=== PATIENT | male | born 1930 | race American Indian/Alaskan Native ===

== ENCOUNTER 2017-06-11 01:57 | Inpatient (IN) | payer MEDICARE ==
[2017-06-11 03:07] LABS: BASO # 0.1 K/uL (0.0-0.2); BASO % 0.6 % (0.0-2.0); EOS % 0.2 % (0.0-4.0); LYMPH % 9.5 % (20.0-40.0); MEAN CELL VOLUME 90.6 fl (80.0-94.0); MEAN CORPUSCULAR HEMOGLOBIN 28.8 pg (27.0-31.0); MEAN CORPUSCULAR HGB CONC 31.8 g/dL (33.0-37.0); MEAN PLATELET VOLUME 8.7 fl (7.2-11.7); MONO # 0.7 K/uL (0.0-0.8); MONO % 6.8 % (0.0-10.0); NEUT # 8.7 K/uL (1.8-7.0); NEUT % 82.9 % (50.0-75.0); PLATELET COUNT 236 K/uL (130-400); RED CELL DISTRIBUTION WIDTH 15.3 % (11.5-14.5); WHITE BLOOD COUNT 10.5 K/uL (4.8-10.8)
[2017-06-11 03:21] LABS: RBC URINE 6 /hpf (0-3); URINE BACTERIA RARE (<OCC); URINE BILIRUBIN NEGATIVE (NEGATIVE); URINE BLOOD SMALL (NEGATIVE); URINE COLOR YELLOW (YELLOW); URINE GLUCOSE (UA) NEG (Normal); URINE KETONE TRACE mg/dL (NEGATIVE); URINE LEUKOCYTE ESTERASE NEG Leu/uL (Negative); URINE PROTEIN 100 mg/dL (NEGATIVE); URINE UROBILINOGEN 0.2-1.0 mg/dL (0.2-1.0); WBC URINE 1 /hpf (0-5)
[2017-06-11 03:58] LABS: BLOOD UREA NITROGEN 16 mg/dl (9-20); GFR AFRICAN-AMERICAN 58; GLUCOSE,RANDOM 196 mg/dL (75-110); SODIUM 139 mmol/l (132-148)
[2017-06-11 03:59] LABS: CALCIUM 9.7 mg/dL (8.4-10.2); CARBON DIOXIDE 21 mmol/L (22-30); CHLORIDE 104 mmol/L (98-107); TOTAL PROTEIN 8.5 G/DL (6.3-8.2)
[2017-06-11 04:00] LABS: ALB/GLOB RATIO 0.9 (1.0-2.1); AST/SGOT 57 U/L (17-59); BILIRUBIN,TOTAL 1.6 mg/dl (0.2-1.3)
[2017-06-11 04:01] LABS: ALKALINE PHOSPHATASE 88 U/L (38-126); ALT/SGPT < 6 U/L (21-72); LIPASE 174 U/L (23-300)
[2017-06-11] MEDS ORDERED: Iohexol 300 100 ML IJ ONE (04:08)
[2017-06-11] MEDS ORDERED: Sodium Chloride 0.9% 50 ML IV ONE (04:08)
[2017-06-11 04:17] LABS: NEUTROPHIL 84 % (42-75); TOTAL CELLS COUNTED 100
[2017-06-11] MEDS ORDERED: Piperacillin/Tazobact 3.375 GM in Sodium Chloride 0.9% 100 ML IVPB STA (05:04)
[2017-06-11] MEDS ORDERED: Sodium Chloride 0.9% 1,000 ML IV STA (05:04)
[2017-06-11] MEDS ORDERED: Piperacillin/Tazobact 3.375 gm Inj IVPB ONE (05:16)
[2017-06-11] MEDS: Sodium Chloride 0.9% 1,000 ML IV SCH ×2 (06:20→22:35)
[2017-06-11 09:50] LABS: PARTIAL THROMBOPLASTIN TIME 29.7 Seconds (25.6-37.1)
[2017-06-11 09:52] LABS: CALCIUM 9.4 mg/dL (8.4-10.2); POTASSIUM 4.7 MMOL/L (3.6-5.0)
[2017-06-11] MEDS: Piperacillin/Tazobact 3.375 GM in Sodium Chloride 0.9% 100 ML IVPB SCH ×3 (09:52→21:22)
[2017-06-11] MEDS ORDERED: Rocuronium 10 mg/ml (5 ml) ONE (13:23)
[2017-06-11] MEDS ORDERED: Propofol 10 mg/ml Inj (20 ML) ONE (13:23)
[2017-06-11] MEDS ORDERED: Succinylcholine 200 mg/10 ml Inj IV ONE (13:24)
[2017-06-11] MEDS ORDERED: Etomidate 20 mg/10ml Inj IV ONE (13:27)
[2017-06-11] MEDS ORDERED: ePHEDrine 50 mg/ml Inj ONE (13:30)
[2017-06-11] MEDS ORDERED: Phenylephrine 10 mg/ml Inj ONE (13:30)
[2017-06-11] MEDS ORDERED: Lidocaine 1% Inj (20ml) ONE (13:45)
[2017-06-11] MEDS ORDERED: Bupivacaine 0.5% Inj(30mL) ONE (13:45)
[2017-06-11] MEDS ORDERED: Sodium Chloride 0.9% 500 ML IV ONE ×2 (13:52→15:05)
[2017-06-11] MEDS ORDERED: Lactated Ringer's 500 ML IV ONE ×2 (13:52→15:05)
[2017-06-11] MEDS ORDERED: Neostigmine Methylsulfate 3mg/3ml Syringe IV ONE ×3 (14:44→14:54)
[2017-06-11] MEDS ORDERED: Oxycodone/Acetaminophen 5/325 mg Tab PO PRN (15:26)
[2017-06-12] MEDS: Sodium Chloride 0.9% 1,000 ML IV SCH (02:52)
[2017-06-12] MEDS: Piperacillin/Tazobact 3.375 GM in Sodium Chloride 0.9% 100 ML IVPB SCH ×4 (04:12→21:24)
[2017-06-12 06:44] LABS: ALB/GLOB RATIO 0.9 (1.0-2.1); BILIRUBIN,TOTAL 0.9 mg/dl (0.2-1.3); CALCIUM 9.2 mg/dL (8.4-10.2); POTASSIUM 4.6 MMOL/L (3.6-5.0); TOTAL PROTEIN 7.1 G/DL (6.3-8.2)
[2017-06-12 07:08] LABS: BASO % 0.2 % (0.0-2.0); EOS % 0.1 % (0.0-4.0); HEMATOCRIT 32.7 % (35.0-51.0); LYMPH # 1.2 K/uL (1.0-4.3); LYMPH % 11.1 % (20.0-40.0); MEAN CELL VOLUME 91.4 fl (80.0-94.0); MEAN CORPUSCULAR HEMOGLOBIN 28.6 pg (27.0-31.0); MEAN CORPUSCULAR HGB CONC 31.3 g/dL (33.0-37.0); MEAN PLATELET VOLUME 8.8 fl (7.2-11.7); MONO # 0.8 K/uL (0.0-0.8); MONO % 6.9 % (0.0-10.0); NEUT # 8.9 K/uL (1.8-7.0); NEUT % 81.7 % (50.0-75.0); WHITE BLOOD COUNT 10.9 K/uL (4.8-10.8)
[2017-06-12] MEDS ORDERED: DOXAZOSIN MESYLATE 2 MG PO SCH (09:00)
[2017-06-13] MEDS: Piperacillin/Tazobact 3.375 GM in Sodium Chloride 0.9% 100 ML IVPB SCH ×4 (03:05→21:30)
[2017-06-13] MEDS: Enoxaparin 40 mg Syringe SC SCH (11:40)
[2017-06-14] MEDS: Piperacillin/Tazobact 3.375 GM in Sodium Chloride 0.9% 100 ML IVPB SCH ×4 (04:50→21:13)
[2017-06-14 07:01] LABS: CALCIUM 9.5 mg/dL (8.4-10.2)
[2017-06-14 09:17] LABS: HEMATOCRIT 30.7 % (35.0-51.0); MEAN CORPUSCULAR HEMOGLOBIN 28.9 pg (27.0-31.0); MEAN CORPUSCULAR HGB CONC 32.1 g/dL (33.0-37.0); RED CELL DISTRIBUTION WIDTH 14.8 % (11.5-14.5); WHITE BLOOD COUNT 8.8 K/uL (4.8-10.8)
[2017-06-14] MEDS: Enoxaparin 40 mg Syringe SC SCH (09:17)
[2017-06-14] MEDS ORDERED: Lidocaine 1% Inj (20ml) ONE (14:06)
[2017-06-14 14:31] LABS: POTASSIUM 4.6 MMOL/L (3.6-5.0)
[2017-06-14 14:58] LABS: BODY FLUID TYPE PLEURAL/THORACENTESI
[2017-06-14 16:10] LABS: BF GROSS APPEARANCE CLOUDY (CLEAR); BODY FLUID TOTAL COUNT 100 (0-0)
[2017-06-15] MEDS: Piperacillin/Tazobact 3.375 GM in Sodium Chloride 0.9% 100 ML IVPB SCH ×2 (04:02→09:32)
[2017-06-15 07:29] VITALS: RESP 19; TEMP 97.9; O2SAT 97
[2017-06-15] MEDS ORDERED: Pantoprazole 40 mg EC Tab PO SCH (09:00)
[2017-06-15] MEDS: Enoxaparin 40 mg Syringe SC SCH ×2 (09:31→10:00)
[2017-06-15 13:30] VITALS: PULSE 80
[2017-06-15 16:10] VITALS: BP 160/82
== END 2017-06-15 15:52 | disposition home or self-care (01) | DRG 342 ==
LOC: H.ER 01:57 → H.ERHOLD 05:04 → H.MEDSURG1 06:20
PROVIDERS: ADMIT Family Medicine; ATTEND Family Medicine
PROC: 0DTJ4ZZ Resection of Appendix, Percutaneous Endoscopic Approach (ICD-10-PCS; principal; 2017-06-11 15:30)
PROC: 0W993ZZ Drainage of Right Pleural Cavity, Percutaneous Approach (ICD-10-PCS; 2017-06-14)
DX: K35.80 Unspecified acute appendicitis (principal); J90 Pleural effusion, not elsewhere classified; E11.9 Type 2 diabetes mellitus without complications; I10 Essential (primary) hypertension; Z95.0 Presence of cardiac pacemaker; Z87.891 Personal history of nicotine dependence; Z77.090 Contact with and (suspected) exposure to asbestos; T41.205A Adverse effect of unspecified general anesthetics, initial encounter; R33.0 Drug induced retention of urine

== ENCOUNTER 2017-06-19 13:39 | Inpatient (IN) | payer MEDICARE, OTHER ==
--- NOTE | 2017-06-19 13:58 | ED PDOC ---
HPI: SOB/CHF/COPD Time Seen by Provider: 06/19/17 13:52 Chief Complaint (Nursing): Shortness Of Breath Additional Complaint(s): Patient is an 87 y/o M who was admitted for appendicitis on 06/11 and found to have loculated R pleural effusion. Patient underwent IR drainage on 06/14. Patient was recommended by Dr. Low, ct surgery for OR drainage and decortication but patient did not want to stay in hospital. He saw Dr. Patel today and after complaining of persistent SOB, was referred back to ED. Past Medical History Vital Signs: Last Vital Signs Temp 97.9 F 06/19/17 13:46 Pulse 98 H 06/19/17 13:46 Resp 17 06/19/17 13:46 BP 165/75 H 06/19/17 13:46 Pulse Ox 98 06/19/17 14:18 - Medical History PMH: Cardia Arrhythmia, Diabetes (NIDDM2), HTN, Pneumonia Denies: Chronic Kidney Disease - Surgical History Surgical History: Pacemaker - Family History Family History: States: Unknown Family Hx - Home Medications Home Medications: Ambulatory Orders Medication Instructions Recorded Doxazosin Mesylate [Cardura Xl] 2 mg PO DAILY 06/11/17 MetFORMIN [glucoPHAGE] 1,000 mg PO BID 06/11/17 - Allergies Allergies/Adverse Reactions: Allergies Allergy/AdvReac Type Severity Reaction Status Date / Time No Known Allergies Allergy Verified 06/11/17 02:08 Review of Systems Constitutional: Negative for: Fever, Chills Cardiovascular: Negative for: Chest Pain Respiratory: Positive for: Shortness of Breath, SOB with Exertion. Negative for : Cough, Wheezing Gastrointestinal: Negative for: Nausea, Vomiting, Abdominal Pain, Diarrhea, Constipation Genitourinary Male: Negative for: Dysuria Musculoskeletal: Negative for: Neck Pain, Shoulder Pain Skin: Negative for: Rash Neurological: Negative for: Weakness, Numbness Physical Exam - Reviewed Nursing Documentation Reviewed: Yes Vital Signs Reviewed: Yes - Physical Exam Appears: Positive for: Non-toxic Head Exam: Positive for: ATRAUMATIC, NORMAL INSPECTION, NORMOCEPHALIC Eye Exam: Positive for: EOMI, Normal appearance, PERRL Cardiovascular/Chest: Positive for: Regular Rate, Rhythm Respiratory: Positive for: Decreased Breath Sounds (at bases) Gastrointestinal/Abdominal: Positive for: Soft, Other (well healed surgical scars). Negative for: Tenderness Back: Positive for: Normal Inspection Extremity: Positive for: Normal ROM Neurologic/Psych: Positive for: Alert, Oriented - ECG O2 Sat by Pulse Oximetry: 98 Medical Decision Making Medical Decision Making: Will get pre-op labs and consult CT surgery and admit EKG shows paced rhythm at 84bpm. Spoke to Dr. Mcclure who requested admission under Dr. Kuhn. Dr. Patel aware of consult. CT Sx consult placed. [facility] med resident aware Disposition - Clinical Impression Clinical Impression: Shortness of breath, Pleural effusion - Disposition Disposition Time: 14:27 Condition: FAIR Forms: [employer] (Indonesian) - Pt Status Changed To: Hospital Disposition Of: Inpatient - Admit Certification Admit to Inpatient:: After my assessment, the patient will require hospitalization for at least two midnights. This is because of the severity of symptoms shown, intensity of services needed, and/or the medical risk in this patient being treated as an outpatient.
[2017-06-19 14:39] LABS: BASO % 0.4 % (0.0-2.0); EOS # 0.1 K/uL (0.0-0.7); EOS % 0.5 % (0.0-4.0); HEMATOCRIT 30.8 % (35.0-51.0); LYMPH # 1.2 K/uL (1.0-4.3); LYMPH % 10.9 % (20.0-40.0); MEAN CELL VOLUME 89.1 fl (80.0-94.0); MEAN CORPUSCULAR HEMOGLOBIN 28.8 pg (27.0-31.0); MEAN CORPUSCULAR HGB CONC 32.3 g/dL (33.0-37.0); MEAN PLATELET VOLUME 8.2 fl (7.2-11.7); MONO # 0.6 K/uL (0.0-0.8); MONO % 5.3 % (0.0-10.0); NEUT # 8.9 K/uL (1.8-7.0); NEUT % 82.9 % (50.0-75.0); NRBC % 0.1 % (0.0-0.0); RED CELL DISTRIBUTION WIDTH 15.1 % (11.5-14.5); WHITE BLOOD COUNT 10.7 K/uL (4.8-10.8)
[2017-06-19 14:59] LABS: ALB/GLOB RATIO 0.9 (1.0-2.1); ALKALINE PHOSPHATASE 47 U/L (38-126); ALT/SGPT 25 U/L (21-72); AST/SGOT 34 U/L (17-59); BILIRUBIN,TOTAL 0.4 mg/dl (0.2-1.3); BLOOD UREA NITROGEN 15 mg/dl (9-20); CALCIUM 9.9 mg/dL (8.4-10.2); CARBON DIOXIDE 24 mmol/L (22-30); CHLORIDE 102 mmol/L (98-107); GFR AFRICAN-AMERICAN > 60; GLUCOSE,RANDOM 180 mg/dL (75-110); POTASSIUM 4.7 MMOL/L (3.6-5.0); SODIUM 139 mmol/l (132-148); TOTAL PROTEIN 7.7 G/DL (6.3-8.2)
[2017-06-19 15:24] LABS: PARTIAL THROMBOPLASTIN TIME 21.8 Seconds (25.6-37.1)
--- NOTE | 2017-06-19 15:24 | CP.PCM.HP ---
<Noah Brown - Last Filed: 06/19/17 16:12> History of Present Illness - History of Present Illness History of Present Illness: 87 y/o male with a PMHx remarkable for HTN, NIDDM2, pacemaker, s/p appendectomy first week of Jun 2017 presented to [facility] ED for evaluation of SOB. Pt was being seen by Dr. Patel today at his office as part of his prior hospitalization follow up (after multiloculated effusion was found on CT) and was telling that his SOB upon discharge has been worsening. Reports it is strictly exertional and he is asymptomatic at rest. He denies any associated chest pain/palpitations , left arm/jaw pain.He reports he is able to sleep flat on his back at night w/ o issue. Denies calf pain and pedal edema. Denies any recent URI symptoms, fever /chills, cough, night sweats. Reports decreased appetite. Pt reports neck stiffness which was sudden onset, w/o inciting event that feels "like i pulled my neck." No other complaints. ROS: 12 points reviewed, as remaining systems negative as per HPI. PMD: Dr. 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 whom is bedside is POA. FamilyHx: denies ED COURSE: Vitals on presentation: T: 97.9, BP 165/75, HR 98, RR 17, POX 98% RA PE: LUNG: decreased breath sounds at bases b/l LABS CBC:10.7>10.0/30.8<393 CMP: wnl COAGS: 12.6/1.1/21.[address] CHEST W CONTRAST CONSULTS Dr. Patel (Pulmonology) Dr. Rios (thoracic surgery) Present on Admission - Present on Admission Any Indicators Present on Admission: No Past Patient History - Past Social History Smoking Status: Former Smoker - CARDIAC Hx Cardiac Disorders: Yes Hx Cardia Arrhythmia: Yes Hx Hypertension: Yes Hx Pacemaker: Yes - PULMONARY Hx Respiratory Disorders: Yes Hx Pneumonia: Yes - NEUROLOGICAL Hx Neurological Disorder: No - HEENT Hx HEENT Problems: No - RENAL Hx Chronic Kidney Disease: No - ENDOCRINE/METABOLIC Hx Endocrine Disorders: Yes Hx Diabetes Mellitus Type 2: Yes - HEMATOLOGICAL/ONCOLOGICAL Hx Blood Disorders: No - INTEGUMENTARY Hx Dermatological Problems: No - MUSCULOSKELETAL/RHEUMATOLOGICAL Hx Musculoskeletal Disorders: No Hx Falls: No - GASTROINTESTINAL Hx Gastrointestinal Disorders: No - GENITOURINARY/GYNECOLOGICAL Hx Genitourinary Disorders: No - PSYCHIATRIC Hx Psychophysiologic Disorder: No Hx Substance Use: No - SURGICAL HISTORY Hx Surgeries: Yes Other/Comment: PACEMAKER - ANESTHESIA Hx Anesthesia: Yes Hx Anesthesia Reactions: No Meds Allergies/Adverse Reactions: Allergies Allergy/AdvReac Type Severity Reaction Status Date / Time No Known Allergies Allergy Verified 06/11/17 02:08 Physical Exam - Constitutional Appears: Non-toxic, No Acute Distress - Head Exam Head Exam: ATRAUMATIC - Eye Exam Eye Exam: EOMI. absent: Conjunctival injection, Scleral icterus Pupil Exam: PERRL - ENT Exam ENT Exam: Mucous Membranes Moist - Neck Exam Neck exam: Positive for: Tenderness (cervical muscle spasm). Negative for: Full Rom (decreased ROM), Lymphadenopathy, Thyromegaly - Respiratory Exam Respiratory Exam: Decreased Breath Sounds (bibasilar up to right mid lung field) , Rales (bibasilar ), NORMAL BREATHING PATTERN. absent: Accessory Muscle Use, Prolonged Expiratory Phase, Wheezes, Respiratory Distress - Cardiovascular Exam Cardiovascular Exam: REGULAR RHYTHM, RRR, +S1, +S2. absent: Gallop, JVD, Rubs, Systolic Murmur - GI/Abdominal Exam GI & Abdominal Exam: Normal Bowel Sounds, Soft. absent: Tenderness - Extremities Exam Extremities exam: Positive for: normal capillary refill, normal inspection, pedal pulses present. Negative for: calf tenderness, pedal edema - Neurological Exam Neurological exam: Alert, CN II-XII Intact, Oriented x3 - Psychiatric Exam Psychiatric exam: Normal Affect, Normal Mood - Skin Skin Exam: Dry, Intact, Normal Color, Warm Results - Vital Signs Recent Vital Signs: Last Vital Signs Temp 97.9 F 06/19/17 13:46 Pulse 98 H 06/19/17 13:46 Resp 16 06/19/17 14:30 BP 165/75 H 06/19/17 13:46 Pulse Ox 98 06/19/17 14:30 - Labs Result Diagrams: 06/19/17 14:25 06/19/17 14:25 Labs: Laboratory Results - last 24 hr 06/19/17 06/19/17 14:25 14:25 WBC 10.7 RBC 3.46 L Hgb 10.0 L Hct 30.8 L MCV 89.1 MCH 28.8 MCHC 32.3 L RDW 15.1 H Plt Count 393 D MPV 8.2 Neut % (Auto) 82.9 H Lymph % (Auto) 10.9 L Lares % (Auto) 5.3 Eos % (Auto) 0.5 Baso % (Auto) 0.4 Neut # 8.9 H Lymph # 1.2 Lares # 0.6 Eos # 0.1 Baso # 0.0 Sodium 139 Potassium 4.7 Chloride 102 Carbon Dioxide 24 Anion Gap 18 BUN 15 Creatinine 1.3 Est GFR ( Amer) > 60 Est GFR (Non-Af Amer) 52 Random Glucose 180 H Calcium 9.9 Total Bilirubin 0.4 AST 34 ALT 25 Alkaline Phosphatase 47 Total Protein 7.7 Albumin 3.6 Globulin 4.1 H Albumin/Globulin Ratio 0.9 L Assessment & Plan (1) Pleural effusion Assessment and Plan: multi-loculated effusion at right lung base was diagnosed at prior visit s/p thoracocentesis 06/14, 70cc of cloudy fluid removed pt to be seen and evaluated by thoracic surgery for options pulmonology on board, appreciations recommended f/u CT w Contrast Status: Acute (2) Hypertension Assessment and Plan: C/w home meds, 2mg QD added hydralizine 10mg PRN as pt has episodes of elevated BP. Status: Chronic (3) Non-insulin dependent type 2 diabetes mellitus Assessment and Plan: c/w Metformin 1000mg BID monitor BS Status: Chronic (4) Prophylactic measure Status: Acute <Tobias Mcclure - Last Filed: 06/21/17 06:44> Results - Vital Signs Recent Vital Signs: Last Vital Signs Temp 97.9 F 06/21/17 00:51 Pulse 95 H 06/21/17 00:51 Resp 18 06/21/17 00:51 BP 166/78 H 06/21/17 00:51 Pulse Ox 95 06/21/17 00:51 - Labs Result Diagrams: 06/20/17 05:30 06/20/17 05:30 Labs: Laboratory Results - last 24 hr 06/20/17 06/20/17 06/20/17 04:53 05:30 11:27 Sodium 139 Potassium 4.2 Chloride 103 Carbon Dioxide 26 Anion Gap 15 BUN 12 Creatinine 1.3 Est GFR ( Amer) > 60 Est GFR (Non-Af Amer) 52 POC Glucose (mg/dL) 184 H 189 H Random Glucose 154 H Calcium 9.8 06/20/17 06/20/17 06/21/17 16:26 21:27 05:53 Sodium Potassium Chloride Carbon Dioxide Anion Gap BUN Creatinine Est GFR ( Amer) Est GFR (Non-Af Amer) POC Glucose (mg/dL) 228 H 279 H 203 H Random Glucose Calcium Attending/Attestation - Attestation I have personally seen and examined this patient.: Yes I have fully participated in the care of the patient.: Yes I have reviewed all pertinent clinical information: Yes
--- NOTE | 2017-06-19 15:35 | CP.PCM.CON ---
<Laura Iglesias - Last Filed: 06/19/17 15:45> History of Present Illness - History of Present Illness History of Present Illness: Cardiothoracic surgery consult for Dr. Low Consulted for: Loculated pleural effusion Patient is an 87y/o male with PMH of HTN, DM, and bradycardia with a pacemaker. Patient was recently hospitalized for appendicitis and underwent an appendectomy. Patient was found to have a right loculated pleural effusion as well as a mass like process in the IRASEMA on CT. The pleural effusion worsened over his hospital stay demonstrating worsening compressive atelectasis. An IR thoracentesis could not fully aspirate the thick components of the effusion. Patient was strongly advised that he should undergo a decortication in the OR soon to prevent further organization of the effusion and compression of the lung, but patient and patient's family decided to go home to recuperate from the appendectomy instead. 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 Patient states that he has difficulty getting up from a chair due to SOB, but denies any coughing, hemoptysis, fevers, chills, chest pain, or back pain. Currently patient complains of fatigue and abdominal pain from the surgery but no other significant symptoms. Patient's past medical history is significant for a 15 year smoking history which he quit 55 years ago. 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 PMH: HTN, DM, bradycardia with pacemaker PSH: pacemaker insertion, appendectomy 06/11/17 All: NKDA Social: ETOH former socially; Tobacco: former 15 year history, quit 55 years ago ; Drugs: denies Review of Systems - Review of Systems All systems: reviewed and no additional remarkable complaints except (as per HPI ) - Constitutional Constitutional: Weakness. absent: Chills, Fever - Cardiovascular Cardiovascular: Dyspnea on Exertion. absent: Chest Pain, Chest Pain at Rest, Dyspnea, Leg Edema - Respiratory Respiratory: Dyspnea on Exertion. absent: Cough, Dyspnea, Hemoptysis, Chest Congestion - Gastrointestinal Gastrointestinal: Abdominal Pain (mild abdominal pain). absent: Diarrhea, Melena, Nausea, Vomiting - Genitourinary Genitourinary: absent: Change in Urinary Stream, Dysuria - Musculoskeletal Musculoskeletal: Neck Pain. absent: Back Pain, Numbness, Tingling - Neurological Neurological: absent: Numbness, Tingling Past Patient History - Past Medical History & Family History Past Medical History?: Yes Past Family History: Reviewed and not pertinent - Past Social History Smoking Status: Former Smoker Alcohol: None Drugs: Denies Home Situation {Lives}: With Family - CARDIAC Hx Cardiac Disorders: Yes Hx Cardia Arrhythmia: Yes Hx Hypertension: Yes Hx Pacemaker: Yes - PULMONARY Hx Respiratory Disorders: Yes Hx Pneumonia: Yes - NEUROLOGICAL Hx Neurological Disorder: No - HEENT Hx HEENT Problems: No - RENAL Hx Chronic Kidney Disease: No - ENDOCRINE/METABOLIC Hx Endocrine Disorders: Yes Hx Diabetes Mellitus Type 2: Yes - HEMATOLOGICAL/ONCOLOGICAL Hx Blood Disorders: No - INTEGUMENTARY Hx Dermatological Problems: No - MUSCULOSKELETAL/RHEUMATOLOGICAL Hx Musculoskeletal Disorders: No Hx Falls: No - GASTROINTESTINAL Hx Gastrointestinal Disorders: No - GENITOURINARY/GYNECOLOGICAL Hx Genitourinary Disorders: No - PSYCHIATRIC Hx Psychophysiologic Disorder: No Hx Substance Use: No - SURGICAL HISTORY Hx Surgeries: Yes Hx Appendectomy: Yes Other/Comment: PACEMAKER, IR thoracentesis - ANESTHESIA Hx Anesthesia: Yes Hx Anesthesia Reactions: No Meds Allergies/Adverse Reactions: Allergies Allergy/AdvReac Type Severity Reaction Status Date / Time No Known Allergies Allergy Verified 06/11/17 02:08 - Medications Medications: Current Medications Home Med (Doxazosin Mesylate [Cardura Xl]) 2 mg PO DAILY [facility] Metformin HCl (Glucophage) 1,000 mg PO BID [facility] Physical Exam - Constitutional Appears: Non-toxic, No Acute Distress - Head Exam Head Exam: ATRAUMATIC, NORMOCEPHALIC - Eye Exam Eye Exam: Normal appearance. absent: Conjunctival injection, Scleral icterus - ENT Exam ENT Exam: Mucous Membranes Moist, Normal Oropharynx - Respiratory Exam Respiratory Exam: NORMAL BREATHING PATTERN. absent: Accessory Muscle Use, Respiratory Distress Additional comments: decreased expansion of the right chest wall - Cardiovascular Exam Cardiovascular Exam: RRR - GI/Abdominal Exam GI & Abdominal Exam: Soft. absent: Distended, Tenderness Additional comments: surgical incisions covered in dermabond c/d/i - Extremities Exam Extremities exam: Positive for: pedal edema (trace), pedal pulses present. Negative for: calf tenderness - Neurological Exam Neurological exam: Alert, Oriented x3 - Psychiatric Exam Psychiatric exam: Normal Affect, Normal Mood - Skin Skin Exam: Dry, Intact, Normal Color, Warm Results - Vital Signs Recent Vital Signs: Last Vital Signs Temp 97.9 F 06/19/17 13:46 Pulse 98 H 06/19/17 13:46 Resp 16 06/19/17 14:30 BP 165/75 H 06/19/17 13:46 Pulse Ox 98 06/19/17 14:30 - Labs Result Diagrams: 06/19/17 14:25 06/19/17 14:25 Labs: Laboratory Results - last 24 hr 06/19/17 06/19/17 06/19/17 14:25 14:25 14:25 WBC 10.7 RBC 3.46 L Hgb 10.0 L Hct 30.8 L MCV 89.1 MCH 28.8 MCHC 32.3 L RDW 15.1 H Plt Count 393 D MPV 8.2 Neut % (Auto) 82.9 H Lymph % (Auto) 10.9 L Nuckolls % (Auto) 5.3 Eos % (Auto) 0.5 Baso % (Auto) 0.4 Neut # 8.9 H Lymph # 1.2 Nuckolls # 0.6 Eos # 0.1 Baso # 0.0 PT 12.6 INR 1.1 APTT 21.8 L Sodium 139 Potassium 4.7 Chloride 102 Carbon Dioxide 24 Anion Gap 18 BUN 15 Creatinine 1.3 Est GFR ( Amer) > 60 Est GFR (Non-Af Amer) 52 Random Glucose 180 H Calcium 9.9 Total Bilirubin 0.4 AST 34 ALT 25 Alkaline Phosphatase 47 Total Protein 7.7 Albumin 3.6 Globulin 4.1 H Albumin/Globulin Ratio 0.9 L Assessment & Plan - Assessment and Plan (Free Text) Assessment: 87M with history of loculated right pleural effusion with compressive atelectasis and left upper lung mass Plan: -CT of the chest with IV contrast--follow up results -PFT's -Follow up cardiology and pulmonology recs -Tentative plans for OR for decortication and lung biopsy on Sunday -May have a heart healthy diet from surgical standpoint -Incentive spirometer, SCD's, physical therapy Thank you for this consult Discussed with Dr. oLw, further recs per him Laura Iglesias, PGY2 <Ron Rios - Last Filed: 06/22/17 12:44> Meds - Medications Medications: Current Medications Acetaminophen (Tylenol 325mg Tab) 650 mg PO Q6 PRN PRN Reason: Pain, moderate (4-7) Last Admin: 06/20/17 23:18 Dose: 650 mg Amlodipine Besylate (Norvasc) 10 mg PO DAILY [facility] Last Admin: 06/22/17 10:29 Dose: 10 mg Doxazosin Mesylate (Cardura) 2 mg PO DAILY [facility] Enoxaparin Sodium (Lovenox) 40 mg SC DAILY [facility] PRN Reason: Protocol Hydralazine HCl (Apresoline) 25 mg PO TID [facility] Last Admin: 06/22/17 08:34 Dose: 25 mg Sodium Chloride (Sodium Chloride 0.45%) 1,000 mls @ 80 mls/hr IV .[id number] [facility] Last Admin: 06/22/17 02:45 Dose: Not Given Metformin HCl (Glucophage) 1,000 mg PO BID [facility] Last Admin: 06/22/17 10:24 Dose: Not Given Morphine Sulfate (Morphine) 0.5 mg IVP Q5MIN PRN PRN Reason: Pain, moderate (4-7) Last Admin: 06/21/17 14:45 Dose: 0.5 mg Results - Vital Signs Recent Vital Signs: Last Vital Signs Temp 98.5 F 06/22/17 12:10 Pulse 69 06/22/17 12:10 Resp 20 06/22/17 12:10 BP 152/63 H 06/22/17 12:10 Pulse Ox 93 L 06/22/17 12:10 - Labs Result Diagrams: 06/22/17 05:50 06/22/17 05:50 Labs: Laboratory Results - last 24 hr 06/21/17 06/21/17 06/21/17 14:39 16:17 21:32 WBC RBC Hgb Hct MCV MCH MCHC RDW Plt Count MPV Neut % (Auto) Lymph % (Auto) Nuckolls % (Auto) Eos % (Auto) Baso % (Auto) Neut # Lymph # Nuckolls # Eos # Baso # pCO2 pO2 HCO3 ABG pH ABG Total CO2 ABG O2 Saturation ABG O2 Content ABG Base Excess ABG Hemoglobin ABG Carboxyhemoglobin POC ABG HHb (Measured) ABG Methemoglobin ABG O2 Capacity Emiliano Test A-a O2 Difference Hgb O2 Saturation FiO2 Sodium Potassium Chloride Carbon Dioxide Anion Gap BUN Creatinine Est GFR ( Amer) Est GFR (Non-Af Amer) POC Glucose (mg/dL) 201 H 197 H 221 H Random Glucose Calcium 06/22/17 06/22/17 06/22/17 05:28 05:50 05:50 WBC 9.3 RBC 3.62 L Hgb 10.2 L Hct 32.4 L MCV 89.4 MCH 28.1 MCHC 31.5 L RDW 15.1 H Plt Count 460 H MPV 8.1 Neut % (Auto) 76.1 H Lymph % (Auto) 16.3 L Nuckolls % (Auto) 6.2 Eos % (Auto) 0.7 Baso % (Auto) 0.7 Neut # 7.1 H Lymph # 1.5 Nuckolls # 0.6 Eos # 0.1 Baso # 0.1 pCO2 40 pO2 69 L HCO3 27.6 ABG pH 7.45 ABG Total CO2 29.0 H ABG O2 Saturation 96.7 ABG O2 Content 12.8 L ABG Base Excess 3.5 H ABG Hemoglobin 9.7 L ABG Carboxyhemoglobin 2.0 H POC ABG HHb (Measured) 3.2 ABG Methemoglobin 1.8 ABG O2 Capacity 13.2 L Emiliano Test Yes A-a O2 Difference 31.0 Hgb O2 Saturation 93.0 L FiO2 21.0 Sodium 143 Potassium 4.3 Chloride 104 Carbon Dioxide 29 Anion Gap 14 BUN 11 Creatinine 1.2 Est GFR ( Amer) > 60 Est GFR (Non-Af Amer) 57 POC Glucose (mg/dL) Random Glucose 171 H Calcium 9.6 06/22/17 06/22/17 06:44 11:19 WBC RBC Hgb Hct MCV MCH MCHC RDW Plt Count MPV Neut % (Auto) Lymph % (Auto) Nuckolls % (Auto) Eos % (Auto) Baso % (Auto) Neut # Lymph # Nuckolls # Eos # Baso # pCO2 pO2 HCO3 ABG pH ABG Total CO2 ABG O2 Saturation ABG O2 Content ABG Base Excess ABG Hemoglobin ABG Carboxyhemoglobin POC ABG HHb (Measured) ABG Methemoglobin ABG O2 Capacity Emiliano Test A-a O2 Difference Hgb O2 Saturation FiO2 Sodium Potassium Chloride Carbon Dioxide Anion Gap BUN Creatinine Est GFR ( Amer) Est GFR (Non-Af Amer) POC Glucose (mg/dL) 184 H 263 H Random Glucose Calcium
[2017-06-19] MEDS ORDERED: Iohexol 300 100 ML IJ ONE (16:16)
[2017-06-19] MEDS ORDERED: Sodium Chloride 0.9% 50 ML IV ONE (16:16)
[2017-06-19] MEDS ORDERED: Piperacillin/Tazobact 3.375 GM in Sodium Chloride 0.9% 100 ML IVPB SCH (18:45)
--- NOTE | 2017-06-19 18:46 | CT ---
PROCEDURE: CT Chest with contrast HISTORY: requested by CT sx to evaluate effusion Relevant interventional procedure(s): 06/14/2017 right thoracentesis with removal of 70 mL of fluid. COMPARISON: 06/13/2017 TECHNIQUE: Contiguous axial images were obtained through the chest with intravenous contrast enhancement. Sagittal and coronal reconstructions were performed. IV contrast: 90 cc Omnipaque 300 Radiation dose (DLP): mGy-cm. This CT exam was performed using one or more of the following dose reduction techniques: Automated exposure control, adjustment of the mA and/or kV according to patient size, and/or use of iterative reconstruction technique. FINDINGS: LUNGS: Stable mass left upper lobe 1.5 x 2.8 cm. No additional suspicious masses or nodules identified in the left lung. Improved aeration left lower lobe. Improved aeration of the right lower lobe which appears to be secondary to decrease in complex right pleural effusion. MEDIASTINUM: Unremarkable thoracic aorta. No aneurysm or dissection. Normal sized heart. Main pulmonary artery unremarkable. No vascular congestion. No lymphadenopathy. PLEURA: Persistent loculated, complex right pleural effusion which has diminished compared to the prior study Calcified pleural plaques primarily in the right pleural space suggests either exposure to asbestos or the sequela of infectious or inflammatory process, indolent pleural reaction. BONES: No fracture. No destructive lesion. UPPER ABDOMEN: Cirrhotic appearing liver. No focal hepatic masses OTHER FINDINGS: None. IMPRESSION: Persistent mass in the left upper lobe. Modest decrease in the complex partially loculated right pleural effusion. Commensurate improved aeration right lower lobe.
[2017-06-20] MEDS: Sodium Chloride 0.9% 1,000 ML IV SCH ×3 (01:00→17:23)
[2017-06-20 06:18] LABS: BASO # 0.1 K/uL (0.0-0.2); BASO % 0.6 % (0.0-2.0); EOS # 0.1 K/uL (0.0-0.7); HEMATOCRIT 30.4 % (35.0-51.0); LYMPH # 1.3 K/uL (1.0-4.3); LYMPH % 15.1 % (20.0-40.0); MEAN CORPUSCULAR HEMOGLOBIN 28.1 pg (27.0-31.0); MEAN CORPUSCULAR HGB CONC 31.6 g/dL (33.0-37.0); MEAN PLATELET VOLUME 7.8 fl (7.2-11.7); MONO # 0.5 K/uL (0.0-0.8); MONO % 6.2 % (0.0-10.0); NEUT # 6.7 K/uL (1.8-7.0); NEUT % 77.1 % (50.0-75.0); WHITE BLOOD COUNT 8.7 K/uL (4.8-10.8)
[2017-06-20 06:38] LABS: BLOOD UREA NITROGEN 12 mg/dl (9-20); CALCIUM 9.8 mg/dL (8.4-10.2); CARBON DIOXIDE 26 mmol/L (22-30); CHLORIDE 103 mmol/L (98-107); GFR AFRICAN-AMERICAN > 60; GLUCOSE,RANDOM 154 mg/dL (75-110); POTASSIUM 4.2 MMOL/L (3.6-5.0); SODIUM 139 mmol/l (132-148)
--- NOTE | 2017-06-20 08:05 | CP.PCM.PN ---
Subjective - Date & Time of Evaluation Date of Evaluation: 06/20/17 Time of Evaluation: 06:30 - Subjective Subjective: Patient seen and examined this AM. NAEO. Patient reports persistent SOB when active but none at rest. Patient also reports back pain with deep breaths. Patient denies any cough, fevers, or any other symptoms Objective - Vital Signs/Intake and Output Vital Signs (last 24 hours): Temp Pulse Resp BP Pulse Ox 98.3 F 91 H 20 185/90 H 93 L 06/20/17 07:46 06/20/17 07:46 06/20/17 07:46 06/20/17 07:46 06/20/17 07:46 - Medications Medications: Current Medications Home Med (Doxazosin Mesylate [Cardura Xl]) 2 mg PO DAILY [facility] Sodium Chloride (Sodium Chloride 0.9%) 1,000 mls @ 125 mls/hr IV .Q8H [facility] Stop: 06/21/17 00:07 Last Admin: 06/20/17 01:00 Dose: 125 mls/hr Metformin HCl (Glucophage) 1,000 mg PO BID [facility] Last Admin: 06/19/17 19:11 Dose: Not Given - Labs Labs: 06/20/17 05:30 06/20/17 05:30 PT 12.6 Seconds (9.8-13.1) 06/19/17 14:25 INR 1.1 (0.9-1.2) 06/19/17 14:25 APTT 21.8 Seconds (25.6-37.1) L 06/19/17 14:25 - Constitutional Appears: Non-toxic, No Acute Distress - Head Exam Head Exam: ATRAUMATIC, NORMOCEPHALIC - Eye Exam Eye Exam: Normal appearance. absent: Conjunctival injection, Scleral icterus - ENT Exam ENT Exam: Mucous Membranes Moist, Normal Oropharynx - Respiratory Exam Respiratory Exam: NORMAL BREATHING PATTERN. absent: Accessory Muscle Use, Respiratory Distress - GI/Abdominal Exam GI & Abdominal Exam: Soft. absent: Distended, Tenderness Additional comments: recent Surgical incisions well approximated with no drainage or erythema - Neurological Exam Neurological Exam: Alert, Awake, Oriented x3 - Psychiatric Exam Psychiatric exam: Normal Affect, Normal Mood - Skin Skin Exam: Dry, Normal Color, Warm Assessment and Plan - Assessment and Plan (Free Text) Assessment: 87M with a loculated right pleural effusion, possible empyema, with compressive atelectasis and left upper lobe mass Plan: -CT of the chest with IV contrast: persistent but improved right pleural effusion, with improved aeration of the left right lower lobe, persistent IRASEMA mass -PFT's--follow up results today -Tentative plans for OR for decortication and lung biopsy on Sunday -Nees cardiac and medical clearance -May have a heart healthy diet from surgical standpoint -Incentive spirometer, SCD's, physical therapy -Continue to monitor clinical status Discussed with Dr. Low, further recs per him Laura Iglesias, PGY2
--- NOTE | 2017-06-20 11:16 | CP.PCM.PN ---
<ReylenaNoah - Last Filed: 06/20/17 11:36> Subjective - Date & Time of Evaluation Date of Evaluation: 06/20/17 Time of Evaluation: 07:00 - Subjective Subjective: pt seen and examined at bedside this morning with attending. No acute events overnight. Afebrile. Lying in bed comfortably, NAD. Reports RAMIREZ, asymptomatic at rest. No other complaints. Objective - Vital Signs/Intake and Output Vital Signs (last 24 hours): Temp Pulse Resp BP Pulse Ox 98.3 F 91 H 20 185/90 H 93 L 06/20/17 07:46 06/20/17 07:46 06/20/17 07:46 06/20/17 07:46 06/20/17 07:46 - Medications Medications: Current Medications Home Med (Doxazosin Mesylate [Cardura Xl]) 2 mg PO DAILY [facility] Sodium Chloride (Sodium Chloride 0.9%) 1,000 mls @ 125 mls/hr IV .Q8H [facility] Stop: 06/21/17 00:07 Last Admin: 06/20/17 11:11 Dose: Not Given Metformin HCl (Glucophage) 1,000 mg PO BID [facility] Last Admin: 06/20/17 11:11 Dose: Not Given - Labs Labs: 06/20/17 05:30 06/20/17 05:30 PT 12.6 Seconds (9.8-13.1) 06/19/17 14:25 INR 1.1 (0.9-1.2) 06/19/17 14:25 APTT 21.8 Seconds (25.6-37.1) L 06/19/17 14:25 - Constitutional Appears: Non-toxic, No Acute Distress - Head Exam Head Exam: ATRAUMATIC - Eye Exam Eye Exam: EOMI Pupil Exam: PERRL - ENT Exam ENT Exam: Mucous Membranes Moist - Respiratory Exam Respiratory Exam: Decreased Breath Sounds, Rales, Rhonchi, NORMAL BREATHING PATTERN. absent: Chest Wall Tenderness - Cardiovascular Exam Cardiovascular Exam: REGULAR RHYTHM, RRR, +S1, +S2. absent: Diastolic murmur, Gallop, Irregular Rhythm, JVD, Rubs - GI/Abdominal Exam GI & Abdominal Exam: Soft, Normal Bowel Sounds. absent: Tenderness - Extremities Exam Extremities Exam: Full ROM. absent: Calf Tenderness, Tenderness - Neurological Exam Neurological Exam: Alert, Awake, CN II-XII Intact - Skin Skin Exam: Dry, Intact, Warm Assessment and Plan (1) Pleural effusion Assessment & Plan: multi-loculated effusion at right lung base was diagnosed at prior visit s/p thoracocentesis 06/14, 70cc of cloudy fluid removed pt to be seen and evaluated by thoracic surgery for options pulmonology on board, appreciations recommended resume heart healthy diet CT w Contrast: persistent but improved right pleural effusion, with improved aeration of the left right lower lobe, persistent IRASEMA mass As per surgery: pt will go for pleural decortication on Sunday Status: Acute (2) Hypertension Assessment & Plan: uncontrolled cardiology consult with dr. reyez appreciated Status: Chronic (3) Non-insulin dependent type 2 diabetes mellitus Assessment & Plan: c/w home meds Status: Chronic (4) Prophylactic measure Assessment & Plan: Lovenox 40mg SC QD Ambulation PT Incentive spirometry Status: Acute <Michele Mccain - Last Filed: 06/22/17 06:57> Objective - Vital Signs/Intake and Output Vital Signs (last 24 hours): Temp Pulse Resp BP Pulse Ox 98.5 F 82 19 157/75 H 96 06/22/17 04:00 06/22/17 04:00 06/22/17 04:00 06/22/17 04:00 06/22/17 04:00 Intake and Output: 06/21/17 06/22/17 18:59 06:59 Intake Total 150 Balance 150 - Medications Medications: Current Medications Acetaminophen (Tylenol 325mg Tab) 650 mg PO Q6 PRN PRN Reason: Pain, moderate (4-7) Last Admin: 06/20/17 23:18 Dose: 650 mg Enoxaparin Sodium (Lovenox) 40 mg SC DAILY@2000 [facility] PRN Reason: Protocol Hydralazine HCl (Apresoline) 25 mg PO TID [facility] Last Admin: 06/21/17 16:19 Dose: 25 mg Sodium Chloride (Sodium Chloride 0.45%) 1,000 mls @ 80 mls/hr IV .[id number] [facility] Metformin HCl (Glucophage) 1,000 mg PO BID [facility] Last Admin: 06/21/17 16:26 Dose: Not Given Morphine Sulfate (Morphine) 0.5 mg IVP Q5MIN PRN PRN Reason: Pain, moderate (4-7) Last Admin: 06/21/17 14:45 Dose: 0.5 mg - Labs Labs: 06/21/17 08:00 06/21/17 08:00 PT 13.1 Seconds (9.8-13.1) 06/21/17 08:00 INR 1.2 (0.9-1.2) 06/21/17 08:00 APTT 29.5 Seconds (25.6-37.1) D 06/21/17 08:00 Attending/Attestation - Attestation I have personally seen and examined this patient.: Yes I have fully participated in the care of the patient.: Yes I have reviewed all pertinent clinical information, including history, physical exam and plan: Yes
[2017-06-20] MEDS ORDERED: Albuterol 0.083% Inhal Sol (2.5 mg/3 mL) UD ONE (13:18)
--- NOTE | 2017-06-20 13:49 | CP.PCM.CON ---
History of Present Illness - History of Present Illness History of Present Illness: THE PATIENT IS AN 87 YEAR OLD MALE WHO WAS ADMITTED TO [facility] EARLIER THIS MONTH FOR ACUTE APPENDICITIS AND UNDERWENT AN APPENDECTOMY. HE WAS FOUND TO HAVE A MULTILOCULATED RIGHT PLEURAL EFFUSION THAT WAS FOUND TO BE AN EXUDATE. HE DECLINED FURTHER TREATMENT OF THE PLEURAL EFFUSION AT THAT TIME AND WAS NOW READMITTED DUE TO INCREASED SOB AND RAMIREZ. HE ALSO HAS A HISTORY OF HYPERTENSION AND HAS SICK SINUS RHYTHM AND HAD A PERMANENT PACEMAKER INSERTED ABOUT 5 YEARS AGO. HE DENIES CHEST PAIN AND DOES NOT HAVE ANY HISTORY OF CAD. HE IS A FORMER CIGARETTE SMOKER. Past Patient History - Past Medical History & Family History Past Medical History?: Yes - Past Social History Smoking Status: Former Smoker - CARDIAC Hx Cardiac Disorders: Yes Hx Cardia Arrhythmia: Yes Hx Hypertension: Yes Hx Pacemaker: Yes - PULMONARY Hx Respiratory Disorders: Yes Hx Pneumonia: Yes - NEUROLOGICAL Hx Neurological Disorder: No - HEENT Hx HEENT Problems: No - RENAL Hx Chronic Kidney Disease: No - ENDOCRINE/METABOLIC Hx Endocrine Disorders: Yes Hx Diabetes Mellitus Type 2: Yes - HEMATOLOGICAL/ONCOLOGICAL Hx Blood Disorders: No - INTEGUMENTARY Hx Dermatological Problems: No - MUSCULOSKELETAL/RHEUMATOLOGICAL Hx Falls: No - GASTROINTESTINAL Hx Gastrointestinal Disorders: No - GENITOURINARY/GYNECOLOGICAL Hx Genitourinary Disorders: No - PSYCHIATRIC Hx Substance Use: No - SURGICAL HISTORY Hx Surgeries: Yes Hx Appendectomy: Yes Other/Comment: PACEMAKER - ANESTHESIA Hx Anesthesia: Yes Hx Anesthesia Reactions: No Meds Allergies/Adverse Reactions: Allergies Allergy/AdvReac Type Severity Reaction Status Date / Time No Known Allergies Allergy Verified 06/11/17 02:08 - Medications Medications: Current Medications Acetaminophen (Tylenol 325mg Tab) 650 mg PO Q6 PRN PRN Reason: Pain, moderate (4-7) Last Admin: 06/20/17 12:09 Dose: 650 mg Enoxaparin Sodium (Lovenox) 40 mg SC DAILY [facility] PRN Reason: Protocol Home Med (Doxazosin Mesylate [Cardura Xl]) 2 mg PO DAILY [facility] Hydralazine HCl (Apresoline) 10 mg PO TID [facility] Last Admin: 06/20/17 13:30 Dose: 10 mg Sodium Chloride (Sodium Chloride 0.9%) 1,000 mls @ 125 mls/hr IV .Q8H [facility] Stop: 06/21/17 00:07 Last Admin: 06/20/17 11:11 Dose: Not Given Metformin HCl (Glucophage) 1,000 mg PO BID [facility] Last Admin: 06/20/17 11:11 Dose: Not Given Physical Exam - Respiratory Exam Respiratory Exam: Decreased Breath Sounds - Cardiovascular Exam Cardiovascular Exam: REGULAR RHYTHM, +S1, +S2 - Additional Findings Additional findings: CT SCAN AND CXR REPORTS NOTED EARLIER JUNE 2017 ADMISSION REVIEWED INCLUDING NOTE FROM DR SALAMANCA AND SURGICAL NOTES FOR DR CHIRINOS Results - Vital Signs Recent Vital Signs: Last Vital Signs Temp 98.3 F 06/20/17 07:46 Pulse 98 H 06/20/17 13:30 Resp 20 06/20/17 07:46 BP 178/87 H 06/20/17 13:30 Pulse Ox 93 L 06/20/17 07:46 - Labs Result Diagrams: 06/20/17 05:30 06/20/17 05:30 Labs: Laboratory Results - last 24 hr 06/19/17 06/19/17 06/19/17 14:03 14:25 14:25 WBC 10.7 RBC 3.46 L Hgb 10.0 L Hct 30.8 L MCV 89.1 MCH 28.8 MCHC 32.3 L RDW 15.1 H Plt Count 393 D MPV 8.2 Neut % (Auto) 82.9 H Lymph % (Auto) 10.9 L [place] % (Auto) 5.3 Eos % (Auto) 0.5 Baso % (Auto) 0.4 Neut # 8.9 H Lymph # 1.2 [place] # 0.6 Eos # 0.1 Baso # 0.0 PT INR APTT Sodium 139 Potassium 4.7 Chloride 102 Carbon Dioxide 24 Anion Gap 18 BUN 15 Creatinine 1.3 Est GFR ( Amer) > 60 Est GFR (Non-Af Amer) 52 POC Glucose (mg/dL) 203 H Random Glucose 180 H Calcium 9.9 Total Bilirubin 0.4 AST 34 ALT 25 Alkaline Phosphatase 47 Total Protein 7.7 Albumin 3.6 Globulin 4.1 H Albumin/Globulin Ratio 0.9 L Blood Type Antibody Screen BBK History Checked 06/19/17 06/19/17 06/20/17 14:25 14:25 04:53 WBC RBC Hgb Hct MCV MCH MCHC RDW Plt Count MPV Neut % (Auto) Lymph % (Auto) [place] % (Auto) Eos % (Auto) Baso % (Auto) Neut # Lymph # [place] # Eos # Baso # PT 12.6 INR 1.1 APTT 21.8 L Sodium Potassium Chloride Carbon Dioxide Anion Gap BUN Creatinine Est GFR ( Amer) Est GFR (Non-Af Amer) POC Glucose (mg/dL) 184 H Random Glucose Calcium Total Bilirubin AST ALT Alkaline Phosphatase Total Protein Albumin Globulin Albumin/Globulin Ratio Blood Type O POSITIVE Antibody Screen Negative BBK History Checked Patient has bt 06/20/17 06/20/17 06/20/17 05:30 05:30 11:27 WBC 8.7 RBC 3.41 L Hgb 9.6 L Hct 30.4 L MCV 89.0 MCH 28.1 MCHC 31.6 L RDW 15.0 H Plt Count 374 MPV 7.8 Neut % (Auto) 77.1 H Lymph % (Auto) 15.1 L [place] % (Auto) 6.2 Eos % (Auto) 1.0 Baso % (Auto) 0.6 Neut # 6.7 Lymph # 1.3 [place] # 0.5 Eos # 0.1 Baso # 0.1 PT INR APTT Sodium 139 Potassium 4.2 Chloride 103 Carbon Dioxide 26 Anion Gap 15 BUN 12 Creatinine 1.3 Est GFR ( Amer) > 60 Est GFR (Non-Af Amer) 52 POC Glucose (mg/dL) 189 H Random Glucose 154 H Calcium 9.8 Total Bilirubin AST ALT Alkaline Phosphatase Total Protein Albumin Globulin Albumin/Globulin Ratio Blood Type Antibody Screen BBK History Checked Assessment & Plan - Assessment and Plan (Free Text) Assessment: RIGHT PLEURAL EFFUSION AND RUL MASS. FORMER CIGARETTE SMOKER HYPERTENSION HYPERLIPIDEMIA Plan: HE IS ON CARDURA 2 MGS DAILY AND HYDRALAZINE AT 10 MGS PO TID WAS STARTED OBSERVE BLOOD PRESSURE AND HYDRALAZINE AND CARDURA CAN NE INCREASED IF NEEDED 12 LEAD EKG ORDERED THORACIC SURGERY IS ON BOARD WITH POSSIBLE DECORTICATION AND LUNG BIOPSY ON SUNDAY
--- NOTE | 2017-06-20 13:56 | CARD ---
APPROVED REPORT EKG Measurement Heart [id number] <Conclusion> Atrial-sensed ventricular-paced rhythm with prolonged AV conduction Abnormal ECG
[2017-06-20] MEDS ORDERED: Enoxaparin 40 mg Syringe SC SCH (22:00)
--- NOTE | 2017-06-21 07:51 | CP.PCM.CON ---
History of Present Illness - History of Present Illness History of Present Illness: This 87-year-old male who is a former cigarette smoker with prior asbestos exposure was known to me from his previous hospitalization at which time he underwent appendectomy for acute appendicitis. He was also found to have loculated pleural effusion with evidence of pleural thickening which returned exudative chemistries when tapped with LDH greater than 3000 and normal glucose level. This fluid was neutrophilic with 95% polys and negative culture. Thoracic surgery was asked to see the patient at that time but he declined any further intervention and returned home. When seen in the office he was encouraged to come back to the hospital for definitive therapy considering the possibility of neoplastic pleural disease. Of note also was a pleural-based nodular density in the left upper lobe apart from the extensive pleural effusion on the right. He did begin to complain of more pain in his back and upper chest with respiration. He has been progressively more short of breath and has had a 20 pound weight loss over the past one year. He does admit to prior asbestos exposure in the remote past. Past Patient History - Past Medical History & Family History Past Medical History?: Yes - Past Social History Smoking Status: Former Smoker Chewing Tobacco Use: No Cigar Use: No Alcohol: None Drugs: Denies Home Situation {Lives}: With Family - CARDIAC Hx Cardia Arrhythmia: Yes Hx Hypertension: Yes Hx Pacemaker: Yes - PULMONARY Hx Pneumonia: Yes Other/Comment: Exudative pleural effusion, extensively on the right, loculated. Pleural-based infiltrate left upper lobe. - NEUROLOGICAL Hx Neurological Disorder: No - HEENT Hx HEENT Problems: No - RENAL Hx Chronic Kidney Disease: No - ENDOCRINE/METABOLIC Hx Diabetes Mellitus Type 2: Yes - HEMATOLOGICAL/ONCOLOGICAL Hx Blood Disorders: No - INTEGUMENTARY Hx Dermatological Problems: No - MUSCULOSKELETAL/RHEUMATOLOGICAL Hx Musculoskeletal Disorders: No Hx Falls: No - GASTROINTESTINAL Hx Gastrointestinal Disorders: No - GENITOURINARY/GYNECOLOGICAL Hx Genitourinary Disorders: No - PSYCHIATRIC Hx Psychophysiologic Disorder: No Hx Substance Use: No - SURGICAL HISTORY Hx Appendectomy: Yes Other/Comment: PACEMAKER - ANESTHESIA Hx Anesthesia: Yes Hx Anesthesia Reactions: No Hx Malignant Hyperthermia: No Meds Allergies/Adverse Reactions: Allergies Allergy/AdvReac Type Severity Reaction Status Date / Time No Known Allergies Allergy Verified 06/11/17 02:08 - Medications Medications: Current Medications Acetaminophen (Tylenol 325mg Tab) 650 mg PO Q6 PRN PRN Reason: Pain, moderate (4-7) Last Admin: 06/20/17 23:18 Dose: 650 mg Enoxaparin Sodium (Lovenox) 40 mg SC HS [facility] PRN Reason: Protocol Last Admin: 06/20/17 23:14 Dose: 40 mg Home Med (Doxazosin Mesylate [Cardura Xl]) 2 mg PO DAILY [facility] Hydralazine HCl (Apresoline) 10 mg PO TID [facility] Last Admin: 06/20/17 17:22 Dose: 10 mg Metformin HCl (Glucophage) 1,000 mg PO BID [facility] Last Admin: 06/20/17 17:22 Dose: Not Given Physical Exam - Additional Findings Additional findings: Well nourished elderly male lying in bed relatively comfortable. No dyspnea at rest but complaining of pain on deep inspiration. Neck is supple and trachea appears midline. No neck vein distention. No palpable lymphadenopathy. Dullness to percussion is noted over the right hemithorax posteriorly. Breath sounds are diminished bilaterally but absent in the right lower lung field posteriorly. Normal wheezing or bronchial breathing. Few dry rales scattered bilaterally. Permanent pacemaker implant in the right upper anterior chest wall noted. The heart sounds are distant and the rhythm is regular. Abdomen soft and nontender with normal bowel sounds. Trace ankle edema is noted bilaterally. No cyanosis or calf tenderness. Results - Vital Signs Recent Vital Signs: Last Vital Signs Temp 97.9 F 06/21/17 00:51 Pulse 95 H 06/21/17 00:51 Resp 18 06/21/17 00:51 BP 166/78 H 06/21/17 00:51 Pulse Ox 95 06/21/17 00:51 - Labs Result Diagrams: 06/20/17 05:30 06/20/17 05:30 Labs: Laboratory Results - last 24 hr 06/20/17 06/20/17 06/20/17 04:53 11:27 16:26 POC Glucose (mg/dL) 184 H 189 H 228 H 06/20/17 06/21/17 21:27 05:53 POC Glucose (mg/dL) 279 H 203 H Assessment & Plan (1) Pulmonary infiltrate present on computed tomography Assessment and Plan: Pleural-based left upper lobe density. Status: Acute Priority: High (2) Pleural effusion, right Assessment and Plan: Exudative, loculated, extensive pleural effusion right hemithorax, etiology to be determined. Possibility of neoplastic disease such as mesothelioma to be considered. Possibility of parapneumonic effusion less likely. Needs definitive diagnosis whether by needle biopsy or surgical procedure. Status: Acute Priority: High - Date & Time Date: 06/20/17 Time: 11:00
[2017-06-21 08:15] LABS: BASO # 0.1 K/uL (0.0-0.2); BASO % 0.7 % (0.0-2.0); EOS # 0.1 K/uL (0.0-0.7); EOS % 0.5 % (0.0-4.0); HEMATOCRIT 30.2 % (35.0-51.0); LYMPH # 1.3 K/uL (1.0-4.3); LYMPH % 12.6 % (20.0-40.0); MEAN CELL VOLUME 87.8 fl (80.0-94.0); MEAN CORPUSCULAR HEMOGLOBIN 28.6 pg (27.0-31.0); MEAN CORPUSCULAR HGB CONC 32.6 g/dL (33.0-37.0); MEAN PLATELET VOLUME 7.6 fl (7.2-11.7); MONO # 0.5 K/uL (0.0-0.8); MONO % 5.1 % (0.0-10.0); NEUT # 8.3 K/uL (1.8-7.0); NEUT % 81.1 % (50.0-75.0); RED CELL DISTRIBUTION WIDTH 14.9 % (11.5-14.5); WHITE BLOOD COUNT 10.3 K/uL (4.8-10.8)
[2017-06-21 08:36] LABS: PARTIAL THROMBOPLASTIN TIME 29.5 Seconds (25.6-37.1)
[2017-06-21 08:41] LABS: BLOOD UREA NITROGEN 10 mg/dl (9-20); CALCIUM 9.3 mg/dL (8.4-10.2); CARBON DIOXIDE 23 mmol/L (22-30); CHLORIDE 101 mmol/L (98-107); GFR AFRICAN-AMERICAN > 60; GLUCOSE,RANDOM 195 mg/dL (75-110); POTASSIUM 3.9 MMOL/L (3.6-5.0); SODIUM 137 mmol/l (132-148)
[2017-06-21] MEDS ORDERED: Enoxaparin 40 mg Syringe SC SCH (09:00)
--- NOTE | 2017-06-21 10:18 | CP.PCM.PN ---
Subjective - Date & Time of Evaluation Date of Evaluation: 06/21/17 Time of Evaluation: 10:18 - Subjective Subjective: The patient appears to be relatively comfortable lying in bed at the present time. Spoke with thoracic surgery yesterday afternoon and the request has been made for interventional radiology to attempt pleural or lung biopsy. Depending on the outcome of this procedure thoracic surgery may or may not be needed at this time. We'll discuss further with all parties involved in this patient's care This present change in plans was discussed this morning with the patient and his family members. The patient was unable to perform pulmonary function study yesterday. Objective - Vital Signs/Intake and Output Vital Signs (last 24 hours): Temp Pulse Resp BP Pulse Ox 97.5 F L 86 20 178/79 H 95 06/21/17 08:05 06/21/17 08:47 06/21/17 08:05 06/21/17 08:47 06/21/17 08:05 - Medications Medications: Current Medications Acetaminophen (Tylenol 325mg Tab) 650 mg PO Q6 PRN PRN Reason: Pain, moderate (4-7) Last Admin: 06/20/17 23:18 Dose: 650 mg Enoxaparin Sodium (Lovenox) 40 mg SC HS [facility] PRN Reason: Protocol Last Admin: 06/20/17 23:14 Dose: 40 mg Home Med (Doxazosin Mesylate [Cardura Xl]) 2 mg PO DAILY [facility] Hydralazine HCl (Apresoline) 10 mg PO TID [facility] Last Admin: 06/21/17 08:47 Dose: 10 mg Metformin HCl (Glucophage) 1,000 mg PO BID [facility] Last Admin: 06/20/17 17:22 Dose: Not Given - Labs Labs: 06/21/17 08:00 06/21/17 08:00 PT 13.1 Seconds (9.8-13.1) 06/21/17 08:00 INR 1.2 (0.9-1.2) 06/21/17 08:00 APTT 29.5 Seconds (25.6-37.1) D 06/21/17 08:00 Assessment and Plan (1) Pulmonary infiltrate present on computed tomography Status: Acute (2) Pleural effusion, right Status: Acute
--- NOTE | 2017-06-21 10:54 | CP.PCM.PN ---
Subjective - Date & Time of Evaluation Date of Evaluation: 06/21/17 Time of Evaluation: 09:00 - Subjective Subjective: NO CHEST PAIN HAS SOME SOB Objective - Vital Signs/Intake and Output Vital Signs (last 24 hours): Temp Pulse Resp BP Pulse Ox 97.5 F L 91 H 20 179/87 H 95 06/21/17 08:05 06/21/17 10:15 06/21/17 08:05 06/21/17 10:15 06/21/17 08:05 - Medications Medications: Current Medications Acetaminophen (Tylenol 325mg Tab) 650 mg PO Q6 PRN PRN Reason: Pain, moderate (4-7) Last Admin: 06/20/17 23:18 Dose: 650 mg Enoxaparin Sodium (Lovenox) 40 mg SC HS [facility] PRN Reason: Protocol Last Admin: 06/20/17 23:14 Dose: 40 mg Home Med (Doxazosin Mesylate [Cardura Xl]) 2 mg PO DAILY [facility] Hydralazine HCl (Apresoline) 10 mg PO TID [facility] Last Admin: 06/21/17 08:47 Dose: 10 mg Metformin HCl (Glucophage) 1,000 mg PO BID [facility] Last Admin: 06/20/17 17:22 Dose: Not Given - Labs Labs: 06/21/17 08:00 06/21/17 08:00 PT 13.1 Seconds (9.8-13.1) 06/21/17 08:00 INR 1.2 (0.9-1.2) 06/21/17 08:00 APTT 29.5 Seconds (25.6-37.1) D 06/21/17 08:00 - Respiratory Exam Respiratory Exam: Decreased Breath Sounds - Cardiovascular Exam Cardiovascular Exam: REGULAR RHYTHM, +S1, +S2 - Extremities Exam Extremities Exam: Normal Inspection - Additional Findings Additional findings: EKG ATRIAL SENSED VENTRICULAR PACED RHYTHM Assessment and Plan - Assessment and Plan (Free Text) Assessment: RIGHT PLEURAL FLUID AND RUL MASS SSS WITH PACEMAKER HYPERTENSION Plan: CONTINUE HYDRALAZINE AND CARDURA FOR LUNG BIOPSY
[2017-06-21] MEDS ORDERED: Enalaprilat 2.5 MG/2 ML IVP ONE (11:08)
--- NOTE | 2017-06-21 11:11 | CP.PCM.PN ---
<Noah Brown - Last Filed: 06/21/17 11:40> Subjective - Date & Time of Evaluation Date of Evaluation: 06/21/17 Time of Evaluation: 07:30 - Subjective Subjective: pt seen and examined at bedside this morning with attending. No acute events overnight. Afebrile. Lying in bed comfortably, NAD. Reports RAMIREZ, asymptomatic at rest. No other complaints. Pt has been NPO since midnight. Lovenox held. Pt for Thoracentesis today. Possible VATS. Objective - Vital Signs/Intake and Output Vital Signs (last 24 hours): Temp Pulse Resp BP Pulse Ox 97.5 F L 91 H 20 179/87 H 95 06/21/17 08:05 06/21/17 10:15 06/21/17 08:05 06/21/17 10:15 06/21/17 08:05 - Medications Medications: Current Medications Acetaminophen (Tylenol 325mg Tab) 650 mg PO Q6 PRN PRN Reason: Pain, moderate (4-7) Last Admin: 06/20/17 23:18 Dose: 650 mg Enalaprilat (Vasotec) 2.5 mg IVP ONCE ONE Stop: 06/21/17 11:09 Enoxaparin Sodium (Lovenox) 40 mg SC HS [facility] PRN Reason: Protocol Last Admin: 06/20/17 23:14 Dose: 40 mg Home Med (Doxazosin Mesylate [Cardura Xl]) 2 mg PO DAILY [facility] Hydralazine HCl (Apresoline) 10 mg PO TID [facility] Last Admin: 06/21/17 08:47 Dose: 10 mg Metformin HCl (Glucophage) 1,000 mg PO BID [facility] Last Admin: 06/21/17 10:32 Dose: Not Given - Labs Labs: 06/21/17 08:00 06/21/17 08:00 PT 13.1 Seconds (9.8-13.1) 06/21/17 08:00 INR 1.2 (0.9-1.2) 06/21/17 08:00 APTT 29.5 Seconds (25.6-37.1) D 06/21/17 08:00 - Constitutional Appears: Non-toxic, No Acute Distress - Head Exam Head Exam: ATRAUMATIC - ENT Exam ENT Exam: Mucous Membranes Moist - Respiratory Exam Respiratory Exam: Decreased Breath Sounds, Rhonchi, Wheezes, NORMAL BREATHING PATTERN. absent: Clear to Ausculation Bilateral, Respiratory Distress - Cardiovascular Exam Cardiovascular Exam: REGULAR RHYTHM, RRR, +S1, +S2. absent: JVD, Rubs - GI/Abdominal Exam GI & Abdominal Exam: Soft, Normal Bowel Sounds. absent: Distended, Firm, Guarding, Rigid, Tenderness - Extremities Exam Extremities Exam: Normal Inspection. absent: Calf Tenderness, Pedal Edema - Neurological Exam Neurological Exam: Alert, Awake, CN II-XII Intact, Oriented x3 - Psychiatric Exam Psychiatric exam: Normal Affect, Normal Mood Assessment and Plan (1) Pleural effusion Assessment & Plan: Pt for thoracentesis today IR bx held as Pleural bx not at [facility] Depending on thoracentesis possible VATS as per pulmonology Status: Acute (2) Hypertension Assessment & Plan: uncontrolled Hydralazine 25mg TID [facility] 2mg QD (not getting as per nursing due hospital not having it available) Status: Chronic (3) Non-insulin dependent type 2 diabetes mellitus Assessment & Plan: c/w home meds Status: Chronic (4) Prophylactic measure Assessment & Plan: Lovenox 40mg SC QD (held prior to IR Bx) Ambulation PT Incentive spirometry Status: Acute <Tobias Mcclure - Last Filed: 06/25/17 06:43> Objective - Vital Signs/Intake and Output Vital Signs (last 24 hours): Temp Pulse Resp BP Pulse Ox 97.9 F 81 19 155/61 H 94 L 06/25/17 00:00 06/25/17 00:00 06/25/17 00:00 06/25/17 00:00 06/25/17 00:00 - Medications Medications: Current Medications Acetaminophen (Tylenol 325mg Tab) 650 mg PO Q6 PRN PRN Reason: Pain, moderate (4-7) Last Admin: 06/20/17 23:18 Dose: 650 mg Amlodipine Besylate (Norvasc) 10 mg PO DAILY [facility] Last Admin: 06/24/17 09:05 Dose: 10 mg Enoxaparin Sodium (Lovenox) 40 mg SC DAILY [facility] PRN Reason: Protocol Last Admin: 06/24/17 09:05 Dose: 40 mg Hydralazine HCl (Apresoline) 25 mg PO TID [facility] Last Admin: 06/24/17 16:26 Dose: 25 mg Metformin HCl (Glucophage) 1,000 mg PO BID [facility] Last Admin: 06/24/17 16:27 Dose: 1,000 mg - Labs Labs: 06/25/17 05:25 06/24/17 05:30 PT 13.1 Seconds (9.8-13.1) 06/21/17 08:00 INR 1.2 (0.9-1.2) 06/21/17 08:00 APTT 29.5 Seconds (25.6-37.1) D 06/21/17 08:00 Attending/Attestation - Attestation I have personally seen and examined this patient.: Yes I have fully participated in the care of the patient.: Yes I have reviewed all pertinent clinical information, including history, physical exam and plan: Yes
--- NOTE | 2017-06-21 12:06 | CP.PCM.PN ---
Subjective - Date & Time of Evaluation Date of Evaluation: 06/21/17 Time of Evaluation: 08:10 - Subjective Subjective: Patient seen and examined this AM. BERNIEEO. Patient denies any SOB while at rest but reports some persistent neck pain, Denies fevers, chills, nausea, vomiting, or any other symptoms Objective - Vital Signs/Intake and Output Vital Signs (last 24 hours): Temp Pulse Resp BP Pulse Ox 97.5 F L 91 H 20 179/87 H 95 06/21/17 08:05 06/21/17 10:15 06/21/17 08:05 06/21/17 10:15 06/21/17 08:05 - Medications Medications: Current Medications Acetaminophen (Tylenol 325mg Tab) 650 mg PO Q6 PRN PRN Reason: Pain, moderate (4-7) Last Admin: 06/20/17 23:18 Dose: 650 mg Enoxaparin Sodium (Lovenox) 40 mg SC HS [facility] PRN Reason: Protocol Last Admin: 06/20/17 23:14 Dose: 40 mg Home Med (Doxazosin Mesylate [Cardura Xl]) 2 mg PO DAILY [facility] Hydralazine HCl (Apresoline) 25 mg PO TID [facility] Metformin HCl (Glucophage) 1,000 mg PO BID [facility] Last Admin: 06/21/17 10:32 Dose: Not Given - Labs Labs: 06/21/17 08:00 06/21/17 08:00 PT 13.1 Seconds (9.8-13.1) 06/21/17 08:00 INR 1.2 (0.9-1.2) 06/21/17 08:00 APTT 29.5 Seconds (25.6-37.1) D 06/21/17 08:00 - Constitutional Appears: Non-toxic, No Acute Distress - Head Exam Head Exam: ATRAUMATIC, NORMOCEPHALIC - Eye Exam Eye Exam: Normal appearance. absent: Conjunctival injection, Scleral icterus - ENT Exam ENT Exam: Mucous Membranes Moist, Normal Oropharynx - Respiratory Exam Respiratory Exam: NORMAL BREATHING PATTERN. absent: Accessory Muscle Use, Respiratory Distress - GI/Abdominal Exam GI & Abdominal Exam: Soft. absent: Distended, Tenderness - Extremities Exam Extremities Exam: absent: Calf Tenderness, Pedal Edema, Tenderness - Neurological Exam Neurological Exam: Alert, Awake, Oriented x3 - Psychiatric Exam Psychiatric exam: Normal Affect, Normal Mood - Skin Skin Exam: Dry, Normal Color, Warm Assessment and Plan - Assessment and Plan (Free Text) Assessment: 87M with a loculated right pleural effusion, possible empyema, with compressive atelectasis and left upper lobe mass Plan: -No immediate surgical intervention indicated at this time. Patient's right pleural effusion was decreased on CT prior to previous imaging. Patient to undergo percutaneous lung biopsy today by IR. Will follow up results -If IR is unable to biopsy the mass, may consider open thoracotomy with biopsy on Sunday. -PFT's were unable to be performed yesterday because patient was unable to perform the maneuvers -Repeat AM labs, ABG tomorrow AM -Incentive spirometer, SCD's, physical therapy -Continue to monitor clinical status Discussed with Dr. Maranda Iglesias, PGY2
[2017-06-21] MEDS ORDERED: Lidocaine 1% Inj (20ml) ONE (13:38)
[2017-06-21] MEDS ORDERED: Midazolam 2 MG/2 ML VIAL ONE ×2 (13:40→13:49)
[2017-06-21] MEDS ORDERED: Sodium Chloride 0.45% 1,000 ML IV SCH (14:15)
--- NOTE | 2017-06-21 14:15 | PCM.SURG1 ---
Surgeon's Initial Post Op Note - Surgeon's Notes Surgeon: Chiki Cramer MD Parole Board Member: NONE Type of Anesthesia: IV Sedation Pre-Operative Diagnosis: Loculated pleural effusion, pleural thickening Operative Findings: CT scan showed loculated pleural effusion and pleural thickening, calcific plaques also present. Post-Operative Diagnosis: Loculated pleural effusion, pleural thickening Operation Performed: CT guided right pleural biopsy. Specimen/Specimens Removed: 20 gauge corex 2 Estimated Blood Loss: EBL {In ML}: 0 Blood Products Given: N/A Drains Used: No Drains Post-Op Condition: Fair Date of Surgery/Procedure: 06/21/17 Time of Surgery/Procedure: 14:10
[2017-06-21] MEDS ORDERED: Sodium Chloride 0.9% 250 ML IV ONE (14:18)
--- NOTE | 2017-06-21 18:41 | RAD ---
HISTORY: Status post right lung biopsy COMPARISON: 06/11/2017 single-view chest Relevant interventional procedure(s): CT biopsy pleural-based mass right anusha thorax. Time of the most recent examination: 13:59 FINDINGS: LUNGS: No significant interval change compared to the prior examination(s). PLEURA: No pneumothorax identified CARDIOVASCULAR: . No radiographic findings to suggest acute or significant cardiovascular disease. Position/ configuration of pacemaker device: Satisfactory. OSSEOUS STRUCTURES: No significant abnormalities. VISUALIZED UPPER ABDOMEN: Normal. OTHER FINDINGS: None. IMPRESSION: No adverse findings following CT-guided biopsy June 21, 2017. Stable consolidative changes, pleural findings.
[2017-06-22 05:34] LABS: ABG ALLEN TEST YES; ARTERIAL BLOOD GAS HCO3 27.6 mmol/L (21-28); ARTERIAL BLOOD GAS O2 CAPACITY 13.2 mL/dL (16-24); ARTERIAL BLOOD GAS O2 CONTENT 12.8 ML/dL (15-23); ARTERIAL BLOOD GAS PH 7.45 (7.35-7.45); ARTERIAL BLOOD GAS PO2 69 mm/Hg (80-100); HHB 3.2 % (0.0-5.0); METHEMOGLOBIN 1.8 % (0.0-3.0)
[2017-06-22 06:27] LABS: BASO # 0.1 K/uL (0.0-0.2); BASO % 0.7 % (0.0-2.0); EOS # 0.1 K/uL (0.0-0.7); EOS % 0.7 % (0.0-4.0); HEMATOCRIT 32.4 % (35.0-51.0); LYMPH # 1.5 K/uL (1.0-4.3); LYMPH % 16.3 % (20.0-40.0); MEAN CELL VOLUME 89.4 fl (80.0-94.0); MEAN CORPUSCULAR HEMOGLOBIN 28.1 pg (27.0-31.0); MEAN CORPUSCULAR HGB CONC 31.5 g/dL (33.0-37.0); MEAN PLATELET VOLUME 8.1 fl (7.2-11.7); MONO # 0.6 K/uL (0.0-0.8); MONO % 6.2 % (0.0-10.0); NEUT # 7.1 K/uL (1.8-7.0); NEUT % 76.1 % (50.0-75.0); RED CELL DISTRIBUTION WIDTH 15.1 % (11.5-14.5); WHITE BLOOD COUNT 9.3 K/uL (4.8-10.8)
[2017-06-22 07:20] LABS: BLOOD UREA NITROGEN 11 mg/dl (9-20); CARBON DIOXIDE 29 mmol/L (22-30); CHLORIDE 104 mmol/L (98-107); GFR AFRICAN-AMERICAN > 60; GLUCOSE,RANDOM 171 mg/dL (75-110); POTASSIUM 4.3 MMOL/L (3.6-5.0); SODIUM 143 mmol/l (132-148)
[2017-06-22] MEDS ORDERED: Enoxaparin 40 mg Syringe SC STA (07:24)
[2017-06-22 07:43] LABS: CALCIUM 9.6 mg/dL (8.4-10.2)
--- NOTE | 2017-06-22 08:51 | CP.PCM.PN ---
Subjective - Date & Time of Evaluation Date of Evaluation: 06/22/17 Time of Evaluation: 06:50 - Subjective Subjective: Patient seen and examined this AM. NAEO. Patient denies any SOB or pain, nausea or vomiting Objective - Vital Signs/Intake and Output Vital Signs (last 24 hours): Temp Pulse Resp BP Pulse Ox 97.7 F 78 18 180/80 H 97 06/22/17 08:16 06/22/17 08:34 06/22/17 08:16 06/22/17 08:34 06/22/17 08:16 - Medications Medications: Current Medications Acetaminophen (Tylenol 325mg Tab) 650 mg PO Q6 PRN PRN Reason: Pain, moderate (4-7) Last Admin: 06/20/17 23:18 Dose: 650 mg Enoxaparin Sodium (Lovenox) 40 mg SC DAILY [facility] PRN Reason: Protocol Hydralazine HCl (Apresoline) 25 mg PO TID [facility] Last Admin: 06/22/17 08:34 Dose: 25 mg Sodium Chloride (Sodium Chloride 0.45%) 1,000 mls @ 80 mls/hr IV .[id number] [facility] Metformin HCl (Glucophage) 1,000 mg PO BID [facility] Last Admin: 06/21/17 16:26 Dose: Not Given Morphine Sulfate (Morphine) 0.5 mg IVP Q5MIN PRN PRN Reason: Pain, moderate (4-7) Last Admin: 06/21/17 14:45 Dose: 0.5 mg - Labs Labs: 06/22/17 05:50 06/22/17 05:50 PT 13.1 Seconds (9.8-13.1) 06/21/17 08:00 INR 1.2 (0.9-1.2) 06/21/17 08:00 APTT 29.5 Seconds (25.6-37.1) D 06/21/17 08:00 - Constitutional Appears: Non-toxic, No Acute Distress - Head Exam Head Exam: ATRAUMATIC, NORMOCEPHALIC - Eye Exam Eye Exam: Normal appearance. absent: Conjunctival injection, Scleral icterus - ENT Exam ENT Exam: Mucous Membranes Moist, Normal Oropharynx - Respiratory Exam Respiratory Exam: NORMAL BREATHING PATTERN. absent: Accessory Muscle Use, Respiratory Distress - Cardiovascular Exam Cardiovascular Exam: RRR - GI/Abdominal Exam GI & Abdominal Exam: Soft. absent: Distended - Extremities Exam Extremities Exam: absent: Calf Tenderness, Pedal Edema, Tenderness - Back Exam Back Exam: absent: rash noted Additional comments: IR drainage site in right posterior upper back with no active bleeding or drainage - Neurological Exam Neurological Exam: Alert, Awake, Oriented x3 - Psychiatric Exam Psychiatric exam: Normal Affect, Normal Mood - Skin Skin Exam: Dry, Normal Color, Warm Assessment and Plan - Assessment and Plan (Free Text) Assessment: 87M with a loculated right pleural effusion, possible empyema, with compressive atelectasis and left upper lobe mass Plan: -No immediate surgical intervention indicated at this time. Further surgical intervention plans pending biopsy results -Follow up path results from IR biopsy -Incentive spirometer, SCD's, physical therapy -Continue to monitor clinical status -If patient continues to be stable in respiratory status, he is clear for discharge from a surgical standpoint to follow up path results as an outpatient. Discussed with Dr. Maranda Iglesias, PGY2
--- NOTE | 2017-06-22 09:17 | CP.PCM.PN ---
Subjective - Date & Time of Evaluation Date of Evaluation: 06/22/17 Time of Evaluation: 08:30 - Subjective Subjective: NO NEW COMPLAINTS Objective - Vital Signs/Intake and Output Vital Signs (last 24 hours): Temp Pulse Resp BP Pulse Ox 97.7 F 78 18 180/80 H 97 06/22/17 08:16 06/22/17 08:34 06/22/17 08:16 06/22/17 08:34 06/22/17 08:16 - Medications Medications: Current Medications Acetaminophen (Tylenol 325mg Tab) 650 mg PO Q6 PRN PRN Reason: Pain, moderate (4-7) Last Admin: 06/20/17 23:18 Dose: 650 mg Amlodipine Besylate (Norvasc) 10 mg PO DAILY [facility] Enoxaparin Sodium (Lovenox) 40 mg SC DAILY [facility] PRN Reason: Protocol Hydralazine HCl (Apresoline) 25 mg PO TID [facility] Last Admin: 06/22/17 08:34 Dose: 25 mg Sodium Chloride (Sodium Chloride 0.45%) 1,000 mls @ 80 mls/hr IV .[id number] [facility] Last Admin: 06/22/17 02:45 Dose: Not Given Metformin HCl (Glucophage) 1,000 mg PO BID [facility] Last Admin: 06/21/17 16:26 Dose: Not Given Morphine Sulfate (Morphine) 0.5 mg IVP Q5MIN PRN PRN Reason: Pain, moderate (4-7) Last Admin: 06/21/17 14:45 Dose: 0.5 mg - Labs Labs: 06/22/17 05:50 06/22/17 05:50 PT 13.1 Seconds (9.8-13.1) 06/21/17 08:00 INR 1.2 (0.9-1.2) 06/21/17 08:00 APTT 29.5 Seconds (25.6-37.1) D 06/21/17 08:00 - Respiratory Exam Respiratory Exam: Decreased Breath Sounds - Cardiovascular Exam Cardiovascular Exam: REGULAR RHYTHM, +S1, +S2 - Additional Findings Additional findings: IR NOTE SEEN WITH PLEURAL BIOPSY Assessment and Plan - Assessment and Plan (Free Text) Assessment: RIGHT PLEURAL EFFUSION SSS WITH PACEMAKER HYPERTENSION-UNCONTROLLED Plan: CONTINUE HYDRALAZINE 25 MGS PO TID AMLODIPINE 10 MGS DAILY [facility]
--- NOTE | 2017-06-22 09:50 | CP.PCM.PN ---
<Noah Brown - Last Filed: 06/22/17 12:25> Subjective - Date & Time of Evaluation Date of Evaluation: 06/22/17 Time of Evaluation: 09:44 - Subjective Subjective: pt seen and examined at bedside this morning with attending. S/P IR Bx. POD1. No acute events overnight. No new complaints. Denies SOB/Chest pain. Objective - Vital Signs/Intake and Output Vital Signs (last 24 hours): Temp Pulse Resp BP Pulse Ox 97.7 F 78 18 180/80 H 97 06/22/17 08:16 06/22/17 08:34 06/22/17 08:16 06/22/17 08:34 06/22/17 08:16 - Medications Medications: Current Medications Acetaminophen (Tylenol 325mg Tab) 650 mg PO Q6 PRN PRN Reason: Pain, moderate (4-7) Last Admin: 06/20/17 23:18 Dose: 650 mg Amlodipine Besylate (Norvasc) 10 mg PO DAILY [facility] Doxazosin Mesylate (Cardura) 2 mg PO DAILY [facility] Enoxaparin Sodium (Lovenox) 40 mg SC DAILY [facility] PRN Reason: Protocol Hydralazine HCl (Apresoline) 25 mg PO TID [facility] Last Admin: 06/22/17 08:34 Dose: 25 mg Sodium Chloride (Sodium Chloride 0.45%) 1,000 mls @ 80 mls/hr IV .[id number] [facility]PL[facility] Last Admin: 06/22/17 02:45 Dose: Not Given Metformin HCl (Glucophage) 1,000 mg PO BID [facility] Last Admin: 06/21/17 16:26 Dose: Not Given Morphine Sulfate (Morphine) 0.5 mg IVP Q5MIN PRN PRN Reason: Pain, moderate (4-7) Last Admin: 06/21/17 14:45 Dose: 0.5 mg - Labs Labs: 06/22/17 05:50 06/22/17 05:50 PT 13.1 Seconds (9.8-13.1) 06/21/17 08:00 INR 1.2 (0.9-1.2) 06/21/17 08:00 APTT 29.5 Seconds (25.6-37.1) D 06/21/17 08:00 - Constitutional Appears: Non-toxic, No Acute Distress - Head Exam Head Exam: ATRAUMATIC - Eye Exam Eye Exam: EOMI Pupil Exam: PERRL - ENT Exam ENT Exam: Mucous Membranes Moist - Neck Exam Neck Exam: Full ROM - Respiratory Exam Respiratory Exam: Decreased Breath Sounds, Clear to Ausculation Bilateral, Rales , Rhonchi, NORMAL BREATHING PATTERN - Cardiovascular Exam Cardiovascular Exam: REGULAR RHYTHM, RRR, +S1, +S2. absent: JVD, Rubs - GI/Abdominal Exam GI & Abdominal Exam: Soft, Normal Bowel Sounds. absent: Tenderness - Extremities Exam Extremities Exam: Normal Inspection. absent: Calf Tenderness - Neurological Exam Neurological Exam: Alert, Awake, CN II-XII Intact, Oriented x3 Assessment and Plan (1) Pleural effusion Assessment & Plan: S/P IR Bx 06/21/2017 f/u path reports no surgical at this point, cleared from surgical standpoint Status: Acute (2) Hypertension Assessment & Plan: uncontrolled Hydralzine 25mg TID Amlodipine 10mg PO QD as per cardiology added Cardura resumed, 2mg QD will contnue to monitor. Status: Chronic (3) Non-insulin dependent type 2 diabetes mellitus Assessment & Plan: c/w meds as ordered Status: Chronic (4) Prophylactic measure Status: Acute <Michele Mccain - Last Filed: 06/25/17 07:06> Objective - Vital Signs/Intake and Output Vital Signs (last 24 hours): Temp Pulse Resp BP Pulse Ox 97.9 F 81 19 155/61 H 94 L 06/25/17 00:00 06/25/17 00:00 06/25/17 00:00 06/25/17 00:00 06/25/17 00:00 - Medications Medications: Current Medications Acetaminophen (Tylenol 325mg Tab) 650 mg PO Q6 PRN PRN Reason: Pain, moderate (4-7) Last Admin: 06/20/17 23:18 Dose: 650 mg Amlodipine Besylate (Norvasc) 10 mg PO DAILY [facility] Last Admin: 06/24/17 09:05 Dose: 10 mg Enoxaparin Sodium (Lovenox) 40 mg SC DAILY [facility] PRN Reason: Protocol Last Admin: 06/24/17 09:05 Dose: 40 mg Hydralazine HCl (Apresoline) 25 mg PO TID [facility] Last Admin: 06/24/17 16:26 Dose: 25 mg Metformin HCl (Glucophage) 1,000 mg PO BID [facility] Last Admin: 06/24/17 16:27 Dose: 1,000 mg - Labs Labs: 06/25/17 05:25 06/25/17 05:25 PT 13.1 Seconds (9.8-13.1) 06/21/17 08:00 INR 1.2 (0.9-1.2) 06/21/17 08:00 APTT 29.5 Seconds (25.6-37.1) D 06/21/17 08:00 Attending/Attestation - Attestation I have personally seen and examined this patient.: Yes I have fully participated in the care of the patient.: Yes I have reviewed all pertinent clinical information, including history, physical exam and plan: Yes
--- NOTE | 2017-06-22 13:02 | CP.PCM.PN ---
Subjective - Date & Time of Evaluation Date of Evaluation: 06/22/17 Time of Evaluation: 12:47 - Subjective Subjective: Pt s/e. Clinically stable. Imaging studies: Complex loculated right pleural effusion(encasing entire right lung), compressive atelectasis, scattered pleural calcification(diaphragm area and posterior chest wall area ), and left upper lobe mass of unknown path. Pleural effusion: high LDH(3312), wbc(3312), ,rbc(792) and no malignant cells. c and s(-) Pleural bx done yeserday-Path pending. a/p: 1. 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 2. Consider open decortication (high risk -not able to perform PFT and cardiac issues)or bx only and drainage, based on path report. 3. d/w Dr Patel and Dr. Iglesias. Objective - Vital Signs/Intake and Output Vital Signs (last 24 hours): Temp Pulse Resp BP Pulse Ox 98.5 F 69 20 152/63 H 93 L 06/22/17 12:10 06/22/17 12:10 06/22/17 12:10 06/22/17 12:10 06/22/17 12:10 - Medications Medications: Current Medications Acetaminophen (Tylenol 325mg Tab) 650 mg PO Q6 PRN PRN Reason: Pain, moderate (4-7) Last Admin: 06/20/17 23:18 Dose: 650 mg Amlodipine Besylate (Norvasc) 10 mg PO DAILY [facility] Last Admin: 06/22/17 10:29 Dose: 10 mg Doxazosin Mesylate (Cardura) 2 mg PO DAILY [facility] Enoxaparin Sodium (Lovenox) 40 mg SC DAILY [facility] PRN Reason: Protocol Hydralazine HCl (Apresoline) 25 mg PO TID [facility] Last Admin: 06/22/17 08:34 Dose: 25 mg Sodium Chloride (Sodium Chloride 0.45%) 1,000 mls @ 80 mls/hr IV .[id number] [facility] Last Admin: 06/22/17 02:45 Dose: Not Given Metformin HCl (Glucophage) 1,000 mg PO BID [facility] Last Admin: 06/22/17 10:24 Dose: Not Given Morphine Sulfate (Morphine) 0.5 mg IVP Q5MIN PRN PRN Reason: Pain, moderate (4-7) Last Admin: 06/21/17 14:45 Dose: 0.5 mg - Labs Labs: 06/22/17 05:50 06/22/17 05:50 PT 13.1 Seconds (9.8-13.1) 06/21/17 08:00 INR 1.2 (0.9-1.2) 06/21/17 08:00 APTT 29.5 Seconds (25.6-37.1) D 06/21/17 08:00
--- NOTE | 2017-06-22 14:46 | CT ---
PROCEDURE: Date of procedure: 06/21/2017 Procedure: 1. CT-guided right lung pleural biopsy. 2. CT Guidance for biopsy Medications: The patient was sedated by anesthesiologist along with physiologic monitoring. HISTORY: Pleural thickening, pleural plaques and complex effusion. TECHNIQUE: Following informed consent, the Pt's chest was marked. The Pt was placed prone on the CT table and procedure time out was performed. A noncontrast CT scan was performed. Noncontrast CT scan confirmed the presence of loculated fluid collection pleural thickening along with calcific pleural plaques. A skin localizer was placed on the patient's right back and a repeat CT scan was performed. The skin was marked, prepped, and draped in the usual sterile fashion. After the skin was anesthetized with lidocaine and the patient sedated by the anesthesiologist, a 20 gauge core needle was advanced percutaneously under direct CT guidance into the thick in the pleura. Upon confirmation of needle position, two 20-gauge core specimens were obtained and sent for routine pathology. The needle was removed and a xeroform dressing was applied. A post biopsy CT scan showed no pneumothorax. IMPRESSION: CT guided core biopsy right right pleural thickening.
[2017-06-22] MEDS ORDERED: Enoxaparin 40 mg Syringe SC SCH (20:00)
[2017-06-23 07:10] LABS: BASO # 0.1 K/uL (0.0-0.2); BASO % 0.7 % (0.0-2.0); EOS # 0.1 K/uL (0.0-0.7); HEMATOCRIT 30.6 % (35.0-51.0); LYMPH # 1.5 K/uL (1.0-4.3); LYMPH % 14.4 % (20.0-40.0); MEAN CELL VOLUME 88.5 fl (80.0-94.0); MEAN CORPUSCULAR HEMOGLOBIN 28.3 pg (27.0-31.0); MEAN PLATELET VOLUME 8.3 fl (7.2-11.7); MONO # 0.6 K/uL (0.0-0.8); MONO % 5.7 % (0.0-10.0); NEUT # 7.9 K/uL (1.8-7.0); NEUT % 78.2 % (50.0-75.0); RED CELL DISTRIBUTION WIDTH 15.1 % (11.5-14.5); WHITE BLOOD COUNT 10.1 K/uL (4.8-10.8)
[2017-06-23 07:13] LABS: BLOOD UREA NITROGEN 13 mg/dl (9-20); CALCIUM 9.3 mg/dL (8.4-10.2); CARBON DIOXIDE 24 mmol/L (22-30); CHLORIDE 105 mmol/L (98-107); GFR AFRICAN-AMERICAN > 60; GLUCOSE,RANDOM 168 mg/dL (75-110); POTASSIUM 4.2 MMOL/L (3.6-5.0); SODIUM 140 mmol/l (132-148)
[2017-06-23] MEDS: Enoxaparin 40 mg Syringe SC SCH (08:55)
--- NOTE | 2017-06-23 12:04 | CP.PCM.PN ---
Subjective - Date & Time of Evaluation Date of Evaluation: 06/23/17 Time of Evaluation: 11:54 - Subjective Subjective: Interim events reviewed. 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 Vital signs are stable, he remains hypertensive and afebrile. He was able to ambulate with physical therapy and would likely do well in [facility]. Would plan for a repeat non-contrast CT chest on Sunday and plan from there. If the effusion remains the same or has increased, then a VATS biopsy under direct vision and drainage might be considered. If the effusion somehow continues to decrease, then [facility] and continued surveillance. Will discuss further with PMD and surgery and see if they agree with my thoughts. Objective - Vital Signs/Intake and Output Vital Signs (last 24 hours): Temp Pulse Resp BP Pulse Ox 98.1 F 80 18 182/79 H 95 06/23/17 07:58 06/23/17 08:55 06/23/17 07:58 06/23/17 08:55 06/23/17 07:58 - Medications Medications: Current Medications Acetaminophen (Tylenol 325mg Tab) 650 mg PO Q6 PRN PRN Reason: Pain, moderate (4-7) Last Admin: 06/20/17 23:18 Dose: 650 mg Amlodipine Besylate (Norvasc) 10 mg PO DAILY [facility] Last Admin: 06/23/17 08:55 Dose: 10 mg Enoxaparin Sodium (Lovenox) 40 mg SC DAILY [facility] PRN Reason: Protocol Last Admin: 06/23/17 08:55 Dose: 40 mg Hydralazine HCl (Apresoline) 25 mg PO TID [facility] Last Admin: 06/23/17 08:54 Dose: 25 mg Metformin HCl (Glucophage) 1,000 mg PO BID [facility] Last Admin: 06/23/17 08:54 Dose: 1,000 mg Morphine Sulfate (Morphine) 0.5 mg IVP Q5MIN PRN PRN Reason: Pain, moderate (4-7) Last Admin: 06/21/17 14:45 Dose: 0.5 mg - Labs Labs: 06/23/17 05:30 06/23/17 05:30 PT 13.1 Seconds (9.8-13.1) 06/21/17 08:00 INR 1.2 (0.9-1.2) 06/21/17 08:00 APTT 29.5 Seconds (25.6-37.1) D 06/21/17 08:00 Assessment and Plan (1) Pulmonary infiltrate present on computed tomography Status: Acute (2) Pleural effusion, right Status: Acute
--- NOTE | 2017-06-23 12:26 | CP.PCM.PN ---
Subjective - Date & Time of Evaluation Date of Evaluation: 06/23/17 Time of Evaluation: 12:26 - Subjective Subjective: pt seen and examined at bedside this morning with attending. S/P IR Bx. POD1. No acute events overnight. No new complaints. Denies SOB/Chest pain. Blood pressure still uncontrolled. Denies headaches/changes in vision, N/V, numbness/ tingling/weakness. Objective - Vital Signs/Intake and Output Vital Signs (last 24 hours): Temp Pulse Resp BP Pulse Ox 98.1 F 80 18 182/79 H 95 06/23/17 07:58 06/23/17 08:55 06/23/17 07:58 06/23/17 08:55 06/23/17 07:58 - Medications Medications: Current Medications Acetaminophen (Tylenol 325mg Tab) 650 mg PO Q6 PRN PRN Reason: Pain, moderate (4-7) Last Admin: 06/20/17 23:18 Dose: 650 mg Amlodipine Besylate (Norvasc) 10 mg PO DAILY [facility] Last Admin: 06/23/17 08:55 Dose: 10 mg Doxazosin Mesylate (Cardura) 2 mg PO DAILY [facility] Enoxaparin Sodium (Lovenox) 40 mg SC DAILY [facility] PRN Reason: Protocol Last Admin: 06/23/17 08:55 Dose: 40 mg Hydralazine HCl (Apresoline) 25 mg PO TID [facility] Last Admin: 06/23/17 08:54 Dose: 25 mg Metformin HCl (Glucophage) 1,000 mg PO BID [facility] Last Admin: 06/23/17 08:54 Dose: 1,000 mg Morphine Sulfate (Morphine) 0.5 mg IVP Q5MIN PRN PRN Reason: Pain, moderate (4-7) Last Admin: 06/21/17 14:45 Dose: 0.5 mg - Labs Labs: 06/23/17 05:30 06/23/17 05:30 PT 13.1 Seconds (9.8-13.1) 06/21/17 08:00 INR 1.2 (0.9-1.2) 06/21/17 08:00 APTT 29.5 Seconds (25.6-37.1) D 06/21/17 08:00 - Constitutional Appears: Non-toxic, No Acute Distress - Eye Exam Eye Exam: EOMI Pupil Exam: PERRL - ENT Exam ENT Exam: Mucous Membranes Moist - Respiratory Exam Respiratory Exam: Decreased Breath Sounds (right lower area), Rales (bibasilar rales), NORMAL BREATHING PATTERN. absent: Rhonchi, Wheezes, Respiratory Distress - Cardiovascular Exam Cardiovascular Exam: REGULAR RHYTHM, RRR, +S1, +S2. absent: Gallop, JVD, Rubs, Murmur - GI/Abdominal Exam GI & Abdominal Exam: Soft. absent: Tenderness - Neurological Exam Neurological Exam: Alert, Awake, CN II-XII Intact, Oriented x3 - Psychiatric Exam Psychiatric exam: Normal Affect, Normal Mood Assessment and Plan (1) Pleural effusion Assessment & Plan: Afebrile, WBC wnl Pathology negative for malignancy s/p blind CT-guided bx OOB/ambulating well with PT repeat non-contrast CT chest on Sunday as per Pulmology and further treatment/ management based on results. Status: Acute (2) Hypertension Assessment & Plan: uncontrolled Hydralzine 25mg TID Amlodipine 10mg PO QD as per cardiology added Cardura resumed, 2mg QD as this is patients home medicine will contnue to monitor. Status: Chronic (3) Non-insulin dependent type 2 diabetes mellitus Assessment & Plan: Metformin 1000mg BID Status: Chronic (4) Prophylactic measure Assessment & Plan: CrCl: 49 mL/min Lovenox 40mg SC QD OOB/ambulation Status: Acute
--- NOTE | 2017-06-23 14:21 | CP.PCM.PN ---
Subjective - Date & Time of Evaluation Date of Evaluation: 06/23/17 Time of Evaluation: 13:00 - Subjective Subjective: NO CHEST PAIN BREATHING OK AT THE PRESENT TIME Objective - Vital Signs/Intake and Output Vital Signs (last 24 hours): Temp Pulse Resp BP Pulse Ox 98.1 F 77 18 163/75 H 95 06/23/17 07:58 06/23/17 12:58 06/23/17 07:58 06/23/17 12:58 06/23/17 07:58 - Medications Medications: Current Medications Acetaminophen (Tylenol 325mg Tab) 650 mg PO Q6 PRN PRN Reason: Pain, moderate (4-7) Last Admin: 06/20/17 23:18 Dose: 650 mg Amlodipine Besylate (Norvasc) 10 mg PO DAILY [facility]PLAC[facility] Last Admin: 06/23/17 08:55 Dose: 10 mg Enoxaparin Sodium (Lovenox) 40 mg SC DAILY [facility] PRN Reason: Protocol Last Admin: 06/23/17 08:55 Dose: 40 mg Hydralazine HCl (Apresoline) 25 mg PO TID REPL[facility] Last Admin: 06/23/17 12:58 Dose: 25 mg Metformin HCl (Glucophage) 1,000 mg PO BID [facility] Last Admin: 06/23/17 08:54 Dose: 1,000 mg Morphine Sulfate (Morphine) 0.5 mg IVP Q5MIN PRN PRN Reason: Pain, moderate (4-7) Last Admin: 06/21/17 14:45 Dose: 0.5 mg - Labs Labs: 06/23/17 05:30 06/23/17 05:30 PT 13.1 Seconds (9.8-13.1) 06/21/17 08:00 INR 1.2 (0.9-1.2) 06/21/17 08:00 APTT 29.5 Seconds (25.6-37.1) D 06/21/17 08:00 - Respiratory Exam Respiratory Exam: Decreased Breath Sounds - Cardiovascular Exam Cardiovascular Exam: REGULAR RHYTHM, +S1, +S2 - Extremities Exam Extremities Exam: Normal Inspection - Additional Findings Additional findings: BP 133/76 6 PM YESTERDAY BP 182/79 EARLIER TODAY BP 163/75 1 PM TODAY PULMONARY NOTE REVIEWED BIOPSY NEGATIVE FOR MALIGNANCY Assessment and Plan - Assessment and Plan (Free Text) Assessment: RIGHT PLEURAL EFFUSION HYPERTENSION SSS WITH PERMANENT PACEMAKER Plan: CONTINUE AMLODIPINE 10 MGS DAILY AND HYDRALAZINE 25 MGS PO TID-BP WILL BE MONITORED AND HYDRALAZINE CAN BE INCREASED IF NEEDED FOR CT SCAN TO REEVALUATE PLEURAL EFFUSION ON 06/25/17
--- NOTE | 2017-06-23 18:22 | CP.PCM.PN ---
Subjective - Date & Time of Evaluation Date of Evaluation: 06/23/17 Time of Evaluation: 09:00 - Subjective Subjective: Patient seen and examined this AM. NAEO. Patient reports improved neck pain but denies any other symptoms. Objective - Vital Signs/Intake and Output Vital Signs (last 24 hours): Temp Pulse Resp BP Pulse Ox 99.4 F 87 20 158/76 H 94 L 06/23/17 16:42 06/23/17 16:42 06/23/17 16:42 06/23/17 16:42 06/23/17 16:42 - Medications Medications: Current Medications Acetaminophen (Tylenol 325mg Tab) 650 mg PO Q6 PRN PRN Reason: Pain, moderate (4-7) Last Admin: 06/20/17 23:18 Dose: 650 mg Amlodipine Besylate (Norvasc) 10 mg PO DAILY [facility] Last Admin: 06/23/17 08:55 Dose: 10 mg Enoxaparin Sodium (Lovenox) 40 mg SC DAILY [facility] PRN Reason: Protocol Last Admin: 06/23/17 08:55 Dose: 40 mg Hydralazine HCl (Apresoline) 25 mg PO TID [facility] Last Admin: 06/23/17 12:58 Dose: 25 mg Metformin HCl (Glucophage) 1,000 mg PO BID [facility] Last Admin: 06/23/17 08:54 Dose: 1,000 mg Morphine Sulfate (Morphine) 0.5 mg IVP Q5MIN PRN PRN Reason: Pain, moderate (4-7) Last Admin: 06/21/17 14:45 Dose: 0.5 mg - Labs Labs: 06/23/17 05:30 06/23/17 05:30 PT 13.1 Seconds (9.8-13.1) 06/21/17 08:00 INR 1.2 (0.9-1.2) 06/21/17 08:00 APTT 29.5 Seconds (25.6-37.1) D 06/21/17 08:00 - Constitutional Appears: Non-toxic, No Acute Distress - Head Exam Head Exam: ATRAUMATIC, NORMOCEPHALIC - Eye Exam Eye Exam: Normal appearance. absent: Conjunctival injection, Scleral icterus - ENT Exam ENT Exam: Mucous Membranes Moist, Normal Oropharynx - Respiratory Exam Respiratory Exam: NORMAL BREATHING PATTERN. absent: Accessory Muscle Use, Respiratory Distress - Cardiovascular Exam Cardiovascular Exam: RRR - GI/Abdominal Exam GI & Abdominal Exam: Soft. absent: Distended, Tenderness - Extremities Exam Extremities Exam: absent: Calf Tenderness, Pedal Edema, Tenderness - Back Exam Additional comments: dressing from percutaneous biopsy on right back c/d/i, non tender - Neurological Exam Neurological Exam: Alert, Awake, Oriented x3 - Psychiatric Exam Psychiatric exam: Normal Affect, Normal Mood - Skin Skin Exam: Dry, Intact, Normal Color, Warm Assessment and Plan - Assessment and Plan (Free Text) Assessment: 87M with a loculated right pleural effusion, possible empyema, with compressive atelectasis and left upper lobe mass Plan: -Pleural biopsy negative for malignant cells. Likely inadequate sample. Will plan for the OR on sunday for a scope assisted biopsy and drainage. -Incentive spirometer, SCD's, physical therapy -Continue to monitor clinical status -Continue care per primary team and recs per pulmonary -Will continue to follow Discussed with Dr. Maranda Iglesias, PGY2
[2017-06-24 06:59] LABS: BASO # 0.1 K/uL (0.0-0.2); BASO % 0.7 % (0.0-2.0); EOS # 0.1 K/uL (0.0-0.7); EOS % 0.9 % (0.0-4.0); LYMPH # 1.7 K/uL (1.0-4.3); LYMPH % 21.3 % (20.0-40.0); MEAN CORPUSCULAR HGB CONC 31.8 g/dL (33.0-37.0); MEAN PLATELET VOLUME 8.3 fl (7.2-11.7); MONO # 0.5 K/uL (0.0-0.8); MONO % 6.4 % (0.0-10.0); NEUT # 5.7 K/uL (1.8-7.0); NEUT % 70.7 % (50.0-75.0); NRBC % 0.1 % (0.0-0.0)
[2017-06-24 07:00] LABS: BLOOD UREA NITROGEN 13 mg/dl (9-20); CALCIUM 9.2 mg/dL (8.4-10.2); CARBON DIOXIDE 25 mmol/L (22-30); CHLORIDE 104 mmol/L (98-107); GFR AFRICAN-AMERICAN > 60; GLUCOSE,RANDOM 156 mg/dL (75-110); POTASSIUM 4.2 MMOL/L (3.6-5.0); SODIUM 139 mmol/l (132-148)
--- NOTE | 2017-06-24 08:53 | CP.PCM.PN ---
Subjective - Date & Time of Evaluation Date of Evaluation: 06/24/17 Time of Evaluation: 08:00 - Subjective Subjective: Patient s/e at bedside. NAEO. Patient denies any SOB, or chest pain. Patient states that his back pain persists, but it improved Objective - Vital Signs/Intake and Output Vital Signs (last 24 hours): Temp Pulse Resp BP Pulse Ox 97.4 F L 62 19 156/79 H 96 06/24/17 07:57 06/24/17 07:57 06/24/17 07:57 06/24/17 07:57 06/24/17 07:57 - Medications Medications: Current Medications Acetaminophen (Tylenol 325mg Tab) 650 mg PO Q6 PRN PRN Reason: Pain, moderate (4-7) Last Admin: 06/20/17 23:18 Dose: 650 mg Amlodipine Besylate (Norvasc) 10 mg PO DAILY [facility] Last Admin: 06/23/17 08:55 Dose: 10 mg Enoxaparin Sodium (Lovenox) 40 mg SC DAILY [facility] PRN Reason: Protocol Last Admin: 06/23/17 08:55 Dose: 40 mg Hydralazine HCl (Apresoline) 25 mg PO TID [facility] Last Admin: 06/23/17 18:21 Dose: 25 mg Metformin HCl (Glucophage) 1,000 mg PO BID [facility] Last Admin: 06/23/17 18:21 Dose: 1,000 mg - Labs Labs: 06/24/17 05:30 06/24/17 05:30 PT 13.1 Seconds (9.8-13.1) 06/21/17 08:00 INR 1.2 (0.9-1.2) 06/21/17 08:00 APTT 29.5 Seconds (25.6-37.1) D 06/21/17 08:00 - Constitutional Appears: Non-toxic, No Acute Distress - Head Exam Head Exam: ATRAUMATIC, NORMOCEPHALIC - Eye Exam Eye Exam: Normal appearance. absent: Conjunctival injection, Scleral icterus - ENT Exam ENT Exam: Mucous Membranes Moist, Normal Oropharynx - Respiratory Exam Respiratory Exam: NORMAL BREATHING PATTERN. absent: Accessory Muscle Use, Respiratory Distress - Cardiovascular Exam Cardiovascular Exam: RRR - GI/Abdominal Exam GI & Abdominal Exam: Soft. absent: Distended, Tenderness - Extremities Exam Extremities Exam: absent: Calf Tenderness, Pedal Edema, Tenderness - Back Exam Back Exam: absent: CVA tenderness (L), CVA tenderness (R) Additional comments: IR thoracoscopty site on right upper back covered with dressing c/d/i. No surrounding tenderness. - Neurological Exam Neurological Exam: Alert, Awake, Oriented x3 - Psychiatric Exam Psychiatric exam: Normal Affect, Normal Mood - Skin Skin Exam: Dry, Normal Color, Warm Assessment and Plan - Assessment and Plan (Free Text) Assessment: 87M with a loculated right pleural effusion with compressive atelectasis and left upper lobe mass Plan: -Pleural percutaneous biopsy performed by IR negative for malignant cells. Likely inadequate sample. -We recommend a PET CT tomorrow for further evaluation of effusion/mass -Will plan for possible OR on Sunday for a scope assisted biopsy and drainage pending results of CT -Incentive spirometer, SCD's, physical therapy -Continue to monitor clinical status -Labs in AM -Continue care per primary team and recs per pulmonary -Will continue to follow Discussed with Dr. Maranda Iglesias, PGY2
[2017-06-24] MEDS: Enoxaparin 40 mg Syringe SC SCH (09:05)
--- NOTE | 2017-06-24 10:36 | CP.PCM.PN ---
Subjective - Date & Time of Evaluation Date of Evaluation: 06/24/17 Time of Evaluation: 08:20 - Subjective Subjective: CC: loculated pleural effusion Pt seen and examined at bedside. No acute events overnight. Back pain present but improved. No new complaints. Denies SOB/Chest pain. Blood pressure still uncontrolled. Denies headaches/ changes in vision, N/V, numbness/tingling/weakness. Objective - Vital Signs/Intake and Output Vital Signs (last 24 hours): Temp Pulse Resp BP Pulse Ox 97.4 F L 62 19 156/79 H 96 06/24/17 07:57 06/24/17 09:05 06/24/17 07:57 06/24/17 09:05 06/24/17 07:57 - Medications Medications: Current Medications Acetaminophen (Tylenol 325mg Tab) 650 mg PO Q6 PRN PRN Reason: Pain, moderate (4-7) Last Admin: 06/20/17 23:18 Dose: 650 mg Amlodipine Besylate (Norvasc) 10 mg PO DAILY [facility] Last Admin: 06/24/17 09:05 Dose: 10 mg Enoxaparin Sodium (Lovenox) 40 mg SC DAILY [facility] PRN Reason: Protocol Last Admin: 06/24/17 09:05 Dose: 40 mg Hydralazine HCl (Apresoline) 25 mg PO TID [facility] Last Admin: 06/24/17 09:04 Dose: 25 mg Metformin HCl (Glucophage) 1,000 mg PO BID [facility] Last Admin: 06/24/17 09:05 Dose: 1,000 mg - Labs Labs: 06/24/17 05:30 06/24/17 05:30 PT 13.1 Seconds (9.8-13.1) 06/21/17 08:00 INR 1.2 (0.9-1.2) 06/21/17 08:00 APTT 29.5 Seconds (25.6-37.1) D 06/21/17 08:00 - Constitutional Appears: No Acute Distress, Chronically Ill - Head Exam Head Exam: ATRAUMATIC - Eye Exam Pupil Exam: PERRL - ENT Exam ENT Exam: Mucous Membranes Moist - Respiratory Exam Additional comments: decreased BS lower lung bases BL - Cardiovascular Exam Cardiovascular Exam: +S1, +S2 - GI/Abdominal Exam GI & Abdominal Exam: Soft. absent: Tenderness - Extremities Exam Extremities Exam: absent: Pedal Edema - Neurological Exam Neurological Exam: Alert, Awake, Oriented x3 - Psychiatric Exam Psychiatric exam: Normal Affect, Normal Mood - Skin Skin Exam: Dry, Normal Color, Warm Assessment and Plan - Assessment and Plan (Free Text) Plan: Pleural effusion Afebrile, WBC wnl Pathology negative for malignancy s/p blind CT-guided bx OOB/ambulating well with PT repeat non-contrast CT chest on Sunday as per Pulmology and further treatment/ management based on results. Potential OR sunday for scope assisted Bx and drainage per Cardio thoracic. Hypertension uncontrolled Hydralzine 25mg TID Amlodipine 10mg PO QD as per cardiology added Cardura resumed, 2mg QD as this is patients home medicine will contnue to monitor. Non-insulin dependent type 2 diabetes mellitus Metformin 1000mg BID Prophylactic measure CrCl: 49 mL/min Lovenox 40mg SC QD OOB/ambulation
--- NOTE | 2017-06-24 10:48 | CP.PCM.PN ---
Subjective - Date & Time of Evaluation Date of Evaluation: 06/24/17 Time of Evaluation: 08:00 - Subjective Subjective: BREATHING IS GOOD NO CHEST PAIN Objective - Vital Signs/Intake and Output Vital Signs (last 24 hours): Temp Pulse Resp BP Pulse Ox 97.4 F L 62 19 156/79 H 96 06/24/17 07:57 06/24/17 09:05 06/24/17 07:57 06/24/17 09:05 06/24/17 07:57 - Medications Medications: Current Medications Acetaminophen (Tylenol 325mg Tab) 650 mg PO Q6 PRN PRN Reason: Pain, moderate (4-7) Last Admin: 06/20/17 23:18 Dose: 650 mg Amlodipine Besylate (Norvasc) 10 mg PO DAILY [facility] Last Admin: 06/24/17 09:05 Dose: 10 mg Enoxaparin Sodium (Lovenox) 40 mg SC DAILY [facility] PRN Reason: Protocol Last Admin: 06/24/17 09:05 Dose: 40 mg Hydralazine HCl (Apresoline) 25 mg PO TID [facility] Last Admin: 06/24/17 09:04 Dose: 25 mg Metformin HCl (Glucophage) 1,000 mg PO BID [facility] Last Admin: 06/24/17 09:05 Dose: 1,000 mg - Labs Labs: 06/24/17 05:30 06/24/17 05:30 PT 13.1 Seconds (9.8-13.1) 06/21/17 08:00 INR 1.2 (0.9-1.2) 06/21/17 08:00 APTT 29.5 Seconds (25.6-37.1) D 06/21/17 08:00 - Respiratory Exam Respiratory Exam: Decreased Breath Sounds - Cardiovascular Exam Cardiovascular Exam: REGULAR RHYTHM, +S1, +S2 - Extremities Exam Extremities Exam: Normal Inspection Assessment and Plan - Assessment and Plan (Free Text) Assessment: RIGHT PLEURAL EFFUSION HYPERTENSION-BETTER READINGS YESTERDAY AFTERNOON AND THIS MORNING SSS WITH PERMANENT PACEMAKER Plan: CONTINUE AMLODIPINE, HYDRALAZINE AND LOVENOX FOR CT SCAN TOMORROW
[2017-06-25 06:09] LABS: BASO # 0.1 K/uL (0.0-0.2); BASO % 0.7 % (0.0-2.0); EOS # 0.1 K/uL (0.0-0.7); EOS % 0.7 % (0.0-4.0); LYMPH # 1.5 K/uL (1.0-4.3); LYMPH % 17.8 % (20.0-40.0); MEAN CELL VOLUME 89.1 fl (80.0-94.0); MEAN CORPUSCULAR HEMOGLOBIN 27.8 pg (27.0-31.0); MEAN CORPUSCULAR HGB CONC 31.2 g/dL (33.0-37.0); MONO # 0.5 K/uL (0.0-0.8); MONO % 6.4 % (0.0-10.0); NEUT # 6.1 K/uL (1.8-7.0); NEUT % 74.4 % (50.0-75.0); RED CELL DISTRIBUTION WIDTH 15.2 % (11.5-14.5); WHITE BLOOD COUNT 8.2 K/uL (4.8-10.8)
[2017-06-25 06:32] LABS: CALCIUM 9.4 mg/dL (8.4-10.2); POTASSIUM 4.1 MMOL/L (3.6-5.0)
--- NOTE | 2017-06-25 07:26 | CP.PCM.PN ---
Subjective - Date & Time of Evaluation Date of Evaluation: 06/25/17 Time of Evaluation: 06:40 - Subjective Subjective: Patient seen and examined this AM. NAEO. Patient denies any pain, SOB, fevers, or any other symptoms. Objective - Vital Signs/Intake and Output Vital Signs (last 24 hours): Temp Pulse Resp BP Pulse Ox 97.9 F 81 19 155/61 H 94 L 06/25/17 00:00 06/25/17 00:00 06/25/17 00:00 06/25/17 00:00 06/25/17 00:00 - Medications Medications: Current Medications Acetaminophen (Tylenol 325mg Tab) 650 mg PO Q6 PRN PRN Reason: Pain, moderate (4-7) Last Admin: 06/20/17 23:18 Dose: 650 mg Amlodipine Besylate (Norvasc) 10 mg PO DAILY [facility] Last Admin: 06/24/17 09:05 Dose: 10 mg Enoxaparin Sodium (Lovenox) 40 mg SC DAILY [facility] PRN Reason: Protocol Last Admin: 06/24/17 09:05 Dose: 40 mg Hydralazine HCl (Apresoline) 25 mg PO TID [facility] Last Admin: 06/24/17 16:26 Dose: 25 mg Metformin HCl (Glucophage) 1,000 mg PO BID [facility] Last Admin: 06/24/17 16:27 Dose: 1,000 mg - Labs Labs: 06/25/17 05:25 06/25/17 05:25 PT 13.1 Seconds (9.8-13.1) 06/21/17 08:00 INR 1.2 (0.9-1.2) 06/21/17 08:00 APTT 29.5 Seconds (25.6-37.1) D 06/21/17 08:00 - Constitutional Appears: Non-toxic, No Acute Distress - Head Exam Head Exam: ATRAUMATIC, NORMOCEPHALIC - Eye Exam Eye Exam: Normal appearance. absent: Conjunctival injection, Scleral icterus - ENT Exam ENT Exam: Mucous Membranes Moist, Normal Oropharynx - Respiratory Exam Respiratory Exam: NORMAL BREATHING PATTERN. absent: Accessory Muscle Use, Respiratory Distress - Cardiovascular Exam Cardiovascular Exam: RRR - GI/Abdominal Exam GI & Abdominal Exam: Soft. absent: Distended, Tenderness - Extremities Exam Extremities Exam: absent: Calf Tenderness, Pedal Edema, Tenderness - Neurological Exam Neurological Exam: Alert, Awake, Oriented x3 - Skin Skin Exam: Dry, Normal Color, Warm Assessment and Plan - Assessment and Plan (Free Text) Assessment: 87M with a loculated right pleural effusion with compressive atelectasis and left upper lobe mass Plan: -Follow up CT chest today -Will plan for possible OR on Sunday for a scope assisted biopsy and drainage pending results of CT -Incentive spirometer, SCD's, physical therapy -Continue to monitor clinical status -Continue care per primary team and recs per pulmonary -Will continue to follow Discussed with Dr. Maranda Iglesias, PGY2
--- NOTE | 2017-06-25 09:42 | CP.PCM.PN ---
Subjective - Date & Time of Evaluation Date of Evaluation: 06/25/17 Time of Evaluation: 08:00 - Subjective Subjective: NO NEW COMPLAINTS Objective - Vital Signs/Intake and Output Vital Signs (last 24 hours): Temp Pulse Resp BP Pulse Ox 97.8 F 87 20 155/82 H 96 06/25/17 08:13 06/25/17 08:13 06/25/17 08:13 06/25/17 08:13 06/25/17 08:13 - Medications Medications: Current Medications Acetaminophen (Tylenol 325mg Tab) 650 mg PO Q6 PRN PRN Reason: Pain, moderate (4-7) Last Admin: 06/20/17 23:18 Dose: 650 mg Amlodipine Besylate (Norvasc) 10 mg PO DAILY [facility] Last Admin: 06/24/17 09:05 Dose: 10 mg Enoxaparin Sodium (Lovenox) 40 mg SC DAILY [facility] PRN Reason: Protocol Last Admin: 06/24/17 09:05 Dose: 40 mg Hydralazine HCl (Apresoline) 25 mg PO TID [facility] Last Admin: 06/24/17 16:26 Dose: 25 mg Metformin HCl (Glucophage) 1,000 mg PO BID [facility] Last Admin: 06/24/17 16:27 Dose: 1,000 mg - Labs Labs: 06/25/17 05:25 06/25/17 08:25 PT 13.1 Seconds (9.8-13.1) 06/21/17 08:00 INR 1.2 (0.9-1.2) 06/21/17 08:00 APTT 29.5 Seconds (25.6-37.1) D 06/21/17 08:00 - Respiratory Exam Respiratory Exam: Clear to Ausculation Bilateral - Cardiovascular Exam Cardiovascular Exam: REGULAR RHYTHM, +S1, +S2 - Extremities Exam Extremities Exam: Normal Inspection Assessment and Plan - Assessment and Plan (Free Text) Assessment: RIGHT PLEURAL EFFUSION HYPERTENSION HYPERLIPIDEMIA Plan: CONTINUE AMLODIPINE AND HYDRALAZINE FOR CT SCAN TODAY TO REEVALUATE RIGHT PLEURAL EFFUSION
[2017-06-25] MEDS: Enoxaparin 40 mg Syringe SC SCH (09:45)
--- NOTE | 2017-06-25 09:56 | CP.PCM.PN ---
Subjective - Date & Time of Evaluation Date of Evaluation: 06/25/17 Time of Evaluation: 09:30 - Subjective Subjective: Lying in bed w/o complaints at present. Appears comfortble. Vital signs are stable. Awaiting repeat CT chest this morning. Further plans are dependant on the above. Objective - Vital Signs/Intake and Output Vital Signs (last 24 hours): Temp Pulse Resp BP Pulse Ox 97.8 F 87 20 155/82 H 96 06/25/17 08:13 06/25/17 09:45 06/25/17 08:13 06/25/17 09:45 06/25/17 08:13 - Medications Medications: Current Medications Acetaminophen (Tylenol 325mg Tab) 650 mg PO Q6 PRN PRN Reason: Pain, moderate (4-7) Last Admin: 06/20/17 23:18 Dose: 650 mg Amlodipine Besylate (Norvasc) 10 mg PO DAILY [facility] Last Admin: 06/25/17 09:45 Dose: 10 mg Enoxaparin Sodium (Lovenox) 40 mg SC DAILY [facility] PRN Reason: Protocol Last Admin: 06/25/17 09:45 Dose: 40 mg Hydralazine HCl (Apresoline) 25 mg PO TID [facility] Last Admin: 06/25/17 09:44 Dose: 25 mg Metformin HCl (Glucophage) 1,000 mg PO BID [facility] Last Admin: 06/25/17 09:45 Dose: 1,000 mg - Labs Labs: 06/25/17 05:25 06/25/17 08:25 PT 13.1 Seconds (9.8-13.1) 06/21/17 08:00 INR 1.2 (0.9-1.2) 06/21/17 08:00 APTT 29.5 Seconds (25.6-37.1) D 06/21/17 08:00 Assessment and Plan (1) Pulmonary infiltrate present on computed tomography Status: Acute (2) Pleural effusion, right Status: Acute
--- NOTE | 2017-06-25 09:56 | CP.PCM.PN ---
Addendum entered and electronically signed by Vita Jerry MD 06/25/17 18:45: med/surg nurse notified provider of no available TCU bed today discharge order cancelled for today Original Note: <Noah Brown - Last Filed: 06/25/17 09:59> Subjective - Date & Time of Evaluation Date of Evaluation: 06/25/17 Time of Evaluation: 07:00 - Subjective Subjective: pt seen and examined at bedside with attending. No acute events overnight. Afebrile. Laying in bed comfortably, NAD. Denies SOB. BP better controlled. OOB/ ambulating with PT w/o issue. Pt for repeat non-contrast CT today. Objective - Vital Signs/Intake and Output Vital Signs (last 24 hours): Temp Pulse Resp BP Pulse Ox 97.8 F 87 20 155/82 H 96 06/25/17 08:13 06/25/17 09:45 06/25/17 08:13 06/25/17 09:45 06/25/17 08:13 - Medications Medications: Current Medications Acetaminophen (Tylenol 325mg Tab) 650 mg PO Q6 PRN PRN Reason: Pain, moderate (4-7) Last Admin: 06/20/17 23:18 Dose: 650 mg Amlodipine Besylate (Norvasc) 10 mg PO DAILY [facility] Last Admin: 06/25/17 09:45 Dose: 10 mg Enoxaparin Sodium (Lovenox) 40 mg SC DAILY [facility] PRN Reason: Protocol Last Admin: 06/25/17 09:45 Dose: 40 mg Hydralazine HCl (Apresoline) 25 mg PO TID [facility] Last Admin: 06/25/17 09:44 Dose: 25 mg Metformin HCl (Glucophage) 1,000 mg PO BID [facility] Last Admin: 06/25/17 09:45 Dose: 1,000 mg - Labs Labs: 06/25/17 05:25 06/25/17 08:25 PT 13.1 Seconds (9.8-13.1) 06/21/17 08:00 INR 1.2 (0.9-1.2) 06/21/17 08:00 APTT 29.5 Seconds (25.6-37.1) D 06/21/17 08:00 - Constitutional Appears: Non-toxic, No Acute Distress - Respiratory Exam Respiratory Exam: Decreased Breath Sounds, Rales (bibasilar rales), NORMAL BREATHING PATTERN. absent: Accessory Muscle Use, Respiratory Distress Additional comments: decreased breath sounds, right base, unchanged - Cardiovascular Exam Cardiovascular Exam: REGULAR RHYTHM, RRR, +S1, +S2. absent: JVD, Rubs - GI/Abdominal Exam GI & Abdominal Exam: Soft, Normal Bowel Sounds. absent: Tenderness - Extremities Exam Extremities Exam: Normal Inspection. absent: Calf Tenderness, Pedal Edema - Neurological Exam Neurological Exam: Alert, Awake, CN II-XII Intact, Oriented x3 Assessment and Plan (1) Pleural effusion Assessment & Plan: repeat non-contrast chest CT today management to be determined based on result Status: Acute (2) Hypertension Assessment & Plan: improving control c/w with amlodipine and hydralazine d/carolyn Cardura as per cardiology c/w monitoring BPs Status: Chronic (3) Non-insulin dependent type 2 diabetes mellitus Assessment & Plan: c/w curren management Status: Chronic (4) Prophylactic measure Assessment & Plan: Lovenox 40mg SC QD SCDS ambulation Status: Acute <Tobias Mcclure - Last Filed: 06/26/17 06:40> Objective - Vital Signs/Intake and Output Vital Signs (last 24 hours): Temp Pulse Resp BP Pulse Ox 98.7 F 79 20 164/90 H 96 06/26/17 00:36 06/26/17 00:36 06/26/17 00:36 06/26/17 00:36 06/26/17 00:36 - Medications Medications: Current Medications Acetaminophen (Tylenol 325mg Tab) 650 mg PO Q6 PRN PRN Reason: Pain, moderate (4-7) Last Admin: 06/20/17 23:18 Dose: 650 mg Amlodipine Besylate (Norvasc) 10 mg PO DAILY [facility] Last Admin: 06/25/17 09:45 Dose: 10 mg Enoxaparin Sodium (Lovenox) 40 mg SC DAILY [facility] PRN Reason: Protocol Last Admin: 06/25/17 09:45 Dose: 40 mg Hydralazine HCl (Apresoline) 25 mg PO TID [facility] Last Admin: 06/25/17 17:37 Dose: 25 mg Metformin HCl (Glucophage) 1,000 mg PO BID [facility] Last Admin: 06/25/17 17:37 Dose: 1,000 mg - Labs Labs: 06/25/17 05:25 06/25/17 08:25 PT 13.1 Seconds (9.8-13.1) 06/21/17 08:00 INR 1.2 (0.9-1.2) 06/21/17 08:00 APTT 29.5 Seconds (25.6-37.1) D 06/21/17 08:00 Attending/Attestation - Attestation I have personally seen and examined this patient.: Yes I have fully participated in the care of the patient.: Yes I have reviewed all pertinent clinical information, including history, physical exam and plan: Yes
--- NOTE | 2017-06-25 13:29 | CT ---
PROCEDURE: CT Chest without contrast HISTORY: pleural effusion COMPARISON: Chest CT with contrast 06/19/2017. TECHNIQUE: Contiguous axial images were obtained through the chest without intravenous contrast enhancement. Sagittal and coronal reconstructions were performed. Radiation dose (DLP): 753.66 mGy-cm. This CT exam was performed using one or more of the following dose reduction techniques: Automated exposure control, adjustment of the mA and/or kV according to patient size, and/or use of iterative reconstruction technique. FINDINGS: LUNGS: Limited dependent atelectasis appreciated bilaterally. Masslike density again evident at the left apex. Visualized airway clear. MEDIASTINUM: Unremarkable thoracic aorta. No aneurysm. Normal sized heart. Main pulmonary artery unremarkable. No vascular congestion. No lymphadenopathy. 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 No left pleural effusion. No pericardial effusion. Cardiac size is stable with a right-sided parotid pacemaker placement again evident. BONES: No fracture. No destructive lesion. Advanced multilevel thoracic spondylosis is identified. UPPER ABDOMEN: Grossly unremarkable. OTHER FINDINGS: None. IMPRESSION: Masslike density again evident in the left apex. Diminishing loculated right pleural effusion with chronic pleural fibrosis associated. Bilateral basilar dependent atelectasis noted. Continued clinical and CT follow-up are advised.
[2017-06-26 07:56] VITALS: RESP 19; TEMP 98.5; O2SAT 97
[2017-06-26] MEDS: Enoxaparin 40 mg Syringe SC SCH (09:29)
--- NOTE | 2017-06-26 10:01 | CP.PCM.PN ---
Subjective - Date & Time of Evaluation Date of Evaluation: 06/26/17 Time of Evaluation: 09:58 - Subjective Subjective: Awaiting bed in transitional care. Appears comfortable, vital signs remain stable, remains hypertensive. No complaints of SOB, cough or chest pain. Minimal dullness on chest percussion in the right base posterolaterally. Breath sounds are present bilaterally, diminished in the right base. Few sonorous rhonchi and rare medium rales in the right lower lobe. No audible wheezes or bronchial breath sounds. No palpable lymphadenopathy. No pedal edema, no cyanosis. Continue same regimen. ROXANA. Objective - Vital Signs/Intake and Output Vital Signs (last 24 hours): Temp Pulse Resp BP Pulse Ox 98.5 F 64 19 157/74 H 97 06/26/17 07:55 06/26/17 09:30 06/26/17 07:55 06/26/17 09:30 06/26/17 07:55 - Medications Medications: Current Medications Acetaminophen (Tylenol 325mg Tab) 650 mg PO Q6 PRN PRN Reason: Pain, moderate (4-7) Last Admin: 06/20/17 23:18 Dose: 650 mg Amlodipine Besylate (Norvasc) 10 mg PO DAILY [facility] Last Admin: 06/26/17 09:29 Dose: 10 mg Enoxaparin Sodium (Lovenox) 40 mg SC DAILY [facility] PRN Reason: Protocol Last Admin: 06/26/17 09:29 Dose: 40 mg Hydralazine HCl (Apresoline) 25 mg PO TID [facility] Last Admin: 06/26/17 09:30 Dose: 25 mg Metformin HCl (Glucophage) 1,000 mg PO BID [facility] Last Admin: 06/26/17 09:30 Dose: 1,000 mg - Labs Labs: 06/25/17 05:25 06/25/17 08:25 PT 13.1 Seconds (9.8-13.1) 06/21/17 08:00 INR 1.2 (0.9-1.2) 06/21/17 08:00 APTT 29.5 Seconds (25.6-37.1) D 06/21/17 08:00 Assessment and Plan (1) Pulmonary infiltrate present on computed tomography Status: Acute (2) Pleural effusion, right Status: Acute
--- NOTE | 2017-06-26 11:40 | CP.PCM.PN ---
Subjective - Date & Time of Evaluation Date of Evaluation: 06/26/17 Time of Evaluation: 10:30 - Subjective Subjective: BREATHING IS BETTER Objective - Vital Signs/Intake and Output Vital Signs (last 24 hours): Temp Pulse Resp BP Pulse Ox 98.5 F 64 19 157/74 H 97 06/26/17 07:55 06/26/17 09:30 06/26/17 07:55 06/26/17 09:30 06/26/17 07:55 - Medications Medications: Current Medications Acetaminophen (Tylenol 325mg Tab) 650 mg PO Q6 PRN PRN Reason: Pain, moderate (4-7) Last Admin: 06/20/17 23:18 Dose: 650 mg Amlodipine Besylate (Norvasc) 10 mg PO DAILY [facility] Last Admin: 06/26/17 09:29 Dose: 10 mg Enoxaparin Sodium (Lovenox) 40 mg SC DAILY [facility] PRN Reason: Protocol Last Admin: 06/26/17 09:29 Dose: 40 mg Hydralazine HCl (Apresoline) 25 mg PO TID [facility] Last Admin: 06/26/17 09:30 Dose: 25 mg Metformin HCl (Glucophage) 1,000 mg PO BID [facility] Last Admin: 06/26/17 09:30 Dose: 1,000 mg - Labs Labs: 06/25/17 05:25 06/25/17 08:25 PT 13.1 Seconds (9.8-13.1) 06/21/17 08:00 INR 1.2 (0.9-1.2) 06/21/17 08:00 APTT 29.5 Seconds (25.6-37.1) D 06/21/17 08:00 - Respiratory Exam Respiratory Exam: Decreased Breath Sounds - Cardiovascular Exam Cardiovascular Exam: REGULAR RHYTHM, +S1, +S2 - Extremities Exam Extremities Exam: Normal Inspection - Additional Findings Additional findings: CT SCAN WITH DECREASE IN RIGHT PLEURAL EFFUSION Assessment and Plan - Assessment and Plan (Free Text) Assessment: RIGHT PLEURAL EFFUSION-DECREASING HYPERTENSION HYPERLIPIDEMIA Plan: CONTINUE AMLODIPINE, HYDRALAZINE AND LOVENOX FOR DISCHARGE TO TCU FOR ROXANA
--- NOTE | 2017-06-26 12:09 | CP.PCM.PN ---
Subjective - Date & Time of Evaluation Date of Evaluation: 06/26/17 Time of Evaluation: 07:00 - Subjective Subjective: pt seen and examined at bedside with attending. No acute events. No new complaints. Objective - Vital Signs/Intake and Output Vital Signs (last 24 hours): Temp Pulse Resp BP Pulse Ox 98.5 F 64 19 157/74 H 97 06/26/17 07:55 06/26/17 09:30 06/26/17 07:55 06/26/17 09:30 06/26/17 07:55 - Medications Medications: Current Medications Acetaminophen (Tylenol 325mg Tab) 650 mg PO Q6 PRN PRN Reason: Pain, moderate (4-7) Last Admin: 06/20/17 23:18 Dose: 650 mg Amlodipine Besylate (Norvasc) 10 mg PO DAILY [facility] Last Admin: 06/26/17 09:29 Dose: 10 mg Enoxaparin Sodium (Lovenox) 40 mg SC DAILY [facility] PRN Reason: Protocol Last Admin: 06/26/17 09:29 Dose: 40 mg Hydralazine HCl (Apresoline) 25 mg PO TID [facility] Last Admin: 06/26/17 09:30 Dose: 25 mg Metformin HCl (Glucophage) 1,000 mg PO BID [facility] Last Admin: 06/26/17 09:30 Dose: 1,000 mg - Labs Labs: 06/25/17 05:25 06/25/17 08:25 PT 13.1 Seconds (9.8-13.1) 06/21/17 08:00 INR 1.2 (0.9-1.2) 06/21/17 08:00 APTT 29.5 Seconds (25.6-37.1) D 06/21/17 08:00 - Constitutional Appears: Non-toxic, No Acute Distress - Head Exam Head Exam: ATRAUMATIC - Eye Exam Eye Exam: EOMI Pupil Exam: PERRL - ENT Exam ENT Exam: Mucous Membranes Moist - Neck Exam Neck Exam: Full ROM - Respiratory Exam Respiratory Exam: Clear to Ausculation Bilateral, NORMAL BREATHING PATTERN. absent: Rales, Rhonchi, Wheezes - Cardiovascular Exam Cardiovascular Exam: REGULAR RHYTHM, RRR, +S1, +S2. absent: JVD, Rubs - GI/Abdominal Exam GI & Abdominal Exam: Soft, Normal Bowel Sounds. absent: Tenderness - Extremities Exam Extremities Exam: Normal Inspection. absent: Pedal Edema - Neurological Exam Neurological Exam: Alert, Awake, CN II-XII Intact, Oriented x3 - Psychiatric Exam Psychiatric exam: Normal Affect, Normal Mood - Skin Skin Exam: Dry, Normal Color, Warm Assessment and Plan (1) Pleural effusion Assessment & Plan: c/w current management, no surgical intervention Incentive spirometry awaiting bed in TCU Status: Acute (2) Hypertension Assessment & Plan: improving control c/w with amlodipine and hydralazine d/carolyn Cardura as per cardiology c/w monitoring BPs Status: Chronic (3) Non-insulin dependent type 2 diabetes mellitus Assessment & Plan: c/w current management Status: Chronic (4) Prophylactic measure Assessment & Plan: Lovenox 40mg SC QD SCDS ambulation Status: Acute
[2017-06-26 13:06] VITALS: BP 148/72; PULSE 68
--- NOTE | 2017-06-27 11:10 | CP.PCM.DIS ---
Provider - Provider Date of Admission: 06/19/17 14:15 Attending physician: Michele Mccain MD Time Spent in preparation of Discharge (in minutes): 35 Diagnosis - Discharge Diagnosis (1) Pleural effusion Status: Acute Hospital Course - Lab Results Lab Results: Most Recent Lab Values WBC 8.2 K/uL (4.8-10.8) 06/25/17 05:25 RBC 3.26 Mil/uL (4.40-5.90) L 06/25/17 05:25 Hgb 9.1 g/dL (12.0-18.0) L 06/25/17 05:25 Hct 29.0 % (35.0-51.0) L 06/25/17 05:25 MCV 89.1 fl (80.0-94.0) 06/25/17 05:25 MCH 27.8 pg (27.0-31.0) 06/25/17 05:25 MCHC 31.2 g/dL (33.0-37.0) L 06/25/17 05:25 RDW 15.2 % (11.5-14.5) H 06/25/17 05:25 Plt Count 413 K/uL (130-400) H 06/25/17 05:25 MPV 8.0 fl (7.2-11.7) 06/25/17 05:25 Neut % (Auto) 74.4 % (50.0-75.0) 06/25/17 05:25 Lymph % (Auto) 17.8 % (20.0-40.0) L 06/25/17 05:25 O'Brien % (Auto) 6.4 % (0.0-10.0) 06/25/17 05:25 Eos % (Auto) 0.7 % (0.0-4.0) 06/25/17 05:25 Baso % (Auto) 0.7 % (0.0-2.0) 06/25/17 05:25 Neut # 6.1 K/uL (1.8-7.0) 06/25/17 05:25 Lymph # 1.5 K/uL (1.0-4.3) 06/25/17 05:25 O'Brien # 0.5 K/uL (0.0-0.8) 06/25/17 05:25 Eos # 0.1 K/uL (0.0-0.7) 06/25/17 05:25 Baso # 0.1 K/uL (0.0-0.2) 06/25/17 05:25 PT 13.1 Seconds (9.8-13.1) 06/21/17 08:00 INR 1.2 (0.9-1.2) 06/21/17 08:00 APTT 29.5 Seconds (25.6-37.1) D 06/21/17 08:00 pCO2 40 mm/Hg (35-45) 06/22/17 05:28 pO2 69 mm/Hg (80-100) L 06/22/17 05:28 HCO3 27.6 mmol/L (21-28) 06/22/17 05:28 ABG pH 7.45 (7.35-7.45) 06/22/17 05:28 ABG Total CO2 29.0 mmol/L (22-28) H 06/22/17 05:28 ABG O2 Saturation 96.7 % (95-98) 06/22/17 05:28 ABG O2 Content 12.8 ML/dL (15-23) L 06/22/17 05:28 ABG Base Excess 3.5 mmol/L (-2.0-3.0) H 06/22/17 05:28 ABG Hemoglobin 9.7 g/dL (11.7-17.4) L 06/22/17 05:28 ABG Carboxyhemoglobin 2.0 % (0.5-1.5) H 06/22/17 05:28 POC ABG HHb (Measured) 3.2 % (0.0-5.0) 06/22/17 05:28 ABG Methemoglobin 1.8 % (0.0-3.0) 06/22/17 05:28 ABG O2 Capacity 13.2 mL/dL (16-24) L 06/22/17 05:28 Emiliano Test Yes 06/22/17 05:28 A-a O2 Difference 31.0 mm/Hg 06/22/17 05:28 Hgb O2 Saturation 93.0 % (95.0-98.0) L 06/22/17 05:28 FiO2 21.0 % 06/22/17 05:28 Sodium 139 mmol/l (132-148) 06/25/17 08:25 Potassium 4.1 MMOL/L (3.6-5.0) 06/25/17 08:25 Chloride 104 mmol/L (98-107) 06/25/17 08:25 Carbon Dioxide 25 mmol/L (22-30) 06/25/17 08:25 Anion Gap 14 (10-20) 06/25/17 08:25 BUN 16 mg/dl (9-20) 06/25/17 08:25 Creatinine 1.5 mg/dL (0.8-1.5) 06/25/17 08:25 Est GFR ( Amer) 53 06/25/17 08:25 Est GFR (Non-Af Amer) 44 06/25/17 08:25 POC Glucose (mg/dL) 183 mg/dL (65-110) H 06/26/17 11:25 Random Glucose 157 mg/dL (75-110) H 06/25/17 08:25 Calcium 9.4 mg/dL (8.4-10.2) 06/25/17 08:25 Total Bilirubin 0.4 mg/dl (0.2-1.3) 06/19/17 14:25 AST 34 U/L (17-59) 06/19/17 14:25 ALT 25 U/L (21-72) 06/19/17 14:25 Alkaline Phosphatase 47 U/L (38-126) 06/19/17 14:25 Total Protein 7.7 G/DL (6.3-8.2) 06/19/17 14:25 Albumin 3.6 g/dL (3.5-5.0) 06/19/17 14:25 Globulin 4.1 gm/dL (2.2-3.9) H 06/19/17 14:25 Albumin/Globulin Ratio 0.9 (1.0-2.1) L 06/19/17 14:25 Serum Immunofixation Detected (Not Detected) H 06/23/17 15:20 Blood Type O POSITIVE 06/19/17 14:25 Antibody Screen Negative 06/19/17 14:25 BBK History Checked Patient has bt 06/19/17 14:25 - Hospital Course Hospital Course: (1) Pleural effusion Assessment & Plan: c/w current management, no surgical intervention BX negatie improving effusion with repeat chest CT Incentive spirometry sent to TCU for rehab Status: Acute (2) Hypertension Assessment & Plan: improving control c/w with amlodipine and hydralazine d/carolyn Cardura as per cardiology c/w monitoring BPs Status: Chronic (3) Non-insulin dependent type 2 diabetes mellitus Assessment & Plan: c/w current management Status: Chronic (4) Prophylactic measure Assessment & Plan: Lovenox 40mg SC QD SCDS ambulation after an uneventful hospital stay, pt was discharged to TCU in stable condition. Discharge Exam - Head Exam Head Exam: ATRAUMATIC - Eye Exam Eye Exam: EOMI Pupil Exam: PERRL - Respiratory Exam Respiratory Exam: Decreased Breath Sounds, Rales, NORMAL BREATHING PATTERN. absent: Accessory Muscle Use, Prolonged Expiratory Phase, Respiratory Distress - Cardiovascular Exam Cardiovascular Exam: REGULAR RHYTHM, RRR, +S1, +S2. absent: Tachycardia, Gallop , JVD, Systolic Murmur - GI/Abdominal Exam GI & Abdominal Exam: Normal Bowel Sounds, Unremarkable Discharge Plan - Discharge Medications Prescriptions: amLODIPine [Norvasc] 10 mg PO DAILY #30 tab hydrALAZINE [Apresoline] 25 mg PO TID #30 tab MetFORMIN [glucoPHAGE] 1,000 mg PO BID #30 tab - Follow Up Plan Condition: FAIR Disposition: REHAB FACILITY/REHAB UNIT
== END 2017-06-26 15:30 | DRG 164 ==
LOC: H.ER 13:39 → H.ERHOLD 14:15 → H.MEDSURG1 21:40
PROVIDERS: ADMIT Family Medicine; ATTEND Family Medicine
PROC: 0BD Respiratory System, Extraction (ICD-10-PCS; principal; 2017-06-21 13:00)
DX: J90 Pleural effusion, not elsewhere classified (principal); J98.11 Atelectasis; E11.9 Type 2 diabetes mellitus without complications; I10 Essential (primary) hypertension; Z95.0 Presence of cardiac pacemaker; Z87.891 Personal history of nicotine dependence; Z77.090 Contact with and (suspected) exposure to asbestos; E78.5 Hyperlipidemia, unspecified; R91.8 Other nonspecific abnormal finding of lung field

== ENCOUNTER 2017-06-23 10:23 | Inpatient (IN) | payer OTHER ==
[2017-06-26 15:48] VITALS: BMI 28.0
[2017-06-27 05:59] LABS: HEMATOCRIT 31.2 % (35.0-51.0); MEAN CELL VOLUME 88.3 fl (80.0-94.0); MEAN CORPUSCULAR HEMOGLOBIN 27.8 pg (27.0-31.0); MEAN CORPUSCULAR HGB CONC 31.5 g/dL (33.0-37.0); RED CELL DISTRIBUTION WIDTH 14.9 % (11.5-14.5); WHITE BLOOD COUNT 6.1 K/uL (4.8-10.8)
[2017-06-27 06:28] LABS: ALB/GLOB RATIO 0.9 (1.0-2.1); BILIRUBIN,TOTAL 0.3 mg/dl (0.2-1.3); CALCIUM 10.1 mg/dL (8.4-10.2); POTASSIUM 4.3 MMOL/L (3.6-5.0); TOTAL PROTEIN 7.7 G/DL (6.3-8.2)
--- NOTE | 2017-06-27 11:02 | CP.PCM.HP ---
<Noah Brown - Last Filed: 06/27/17 11:06> History of Present Illness - History of Present Illness History of Present Illness: 87 y/o male with a PMHx remarkable for HTN, NIDDM2, pacemaker, s/p appendectomy first week of Jun 2017 presented to [facility] for evaluation of SOB. Pt was being seen by Dr. Patel today at his office as part of his prior hospitalization follow up (after multiloculated effusion was found on CT) and was telling that his SOB upon discharge has been worsening. Reports it is strictly exertional and he is asymptomatic at rest. He denies any associated chest pain/palpitations , left arm/jaw pain.He reports he is able to sleep flat on his back at night w/ o issue. Denies calf pain and pedal edema. Denies any recent URI symptoms, fever /chills, cough, night sweats. Reports decreased appetite. Pt reports neck stiffness which was sudden onset, w/o inciting event that feels "like i pulled my neck." No other complaints. ROS: 12 points reviewed, as remaining systems negative as per HPI. PMD: Dr. 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 whom is bedside is POA. FamilyHx: denies ED COURSE: Vitals on presentation: T: 97.9, BP 165/75, HR 98, RR 17, POX 98% RA PE: LUNG: decreased breath sounds at bases b/l LABS CBC:10.7>10.0/30.8<393 CMP: wnl COAGS: 12.6/1.1/21.[address] CHEST W CONTRAST CONSULTS Dr. Patel (Pulmonology) Dr. Rios (thoracic surgery) MED/SURG COURSE: Underwent repeat noncontrast ct underwent IR Bx, negative for malignancy no surgical intervention indicated pleural effusion improving htn better controlled admitted to TCU for rehab Present on Admission - Present on Admission Any Indicators Present on Admission: No Past Patient History - Past Medical History & Family History Past Medical History?: Yes - Past Social History Smoking Status: Former Smoker - CARDIAC Hx Cardia Arrhythmia: Yes Hx Hypertension: Yes Hx Pacemaker: Yes - PULMONARY Hx Pneumonia: Yes Other/Comment: Exudative pleural effusion, extensively on the right, loculated. Pleural-based infiltrate left upper lobe. - NEUROLOGICAL Hx Neurological Disorder: No - HEENT Hx HEENT Problems: No - RENAL Hx Chronic Kidney Disease: No - ENDOCRINE/METABOLIC Hx Diabetes Mellitus Type 2: Yes - HEMATOLOGICAL/ONCOLOGICAL Hx AIDS: No Hx Human Immunodeficiency Virus (HIV): No - INTEGUMENTARY Hx Dermatological Problems: No - MUSCULOSKELETAL/RHEUMATOLOGICAL Hx Falls: No - GASTROINTESTINAL Hx Gastrointestinal Disorders: No - GENITOURINARY/GYNECOLOGICAL Hx Genitourinary Disorders: No - PSYCHIATRIC Hx Substance Use: No - SURGICAL HISTORY Hx Appendectomy: Yes Other/Comment: PACEMAKER - ANESTHESIA Hx Anesthesia: Yes Hx Anesthesia Reactions: No Hx Malignant Hyperthermia: No Meds Allergies/Adverse Reactions: Allergies Allergy/AdvReac Type Severity Reaction Status Date / Time No Known Allergies Allergy Verified 06/26/17 19:40 Physical Exam - Constitutional Appears: Non-toxic, No Acute Distress - Head Exam Head Exam: ATRAUMATIC - ENT Exam ENT Exam: Mucous Membranes Moist - Respiratory Exam Respiratory Exam: Decreased Breath Sounds, Clear to Auscultation Bilateral, Rales, NORMAL BREATHING PATTERN. absent: Accessory Muscle Use, Rhonchi, Wheezes , Respiratory Distress - Cardiovascular Exam Cardiovascular Exam: REGULAR RHYTHM, RRR, +S1, +S2. absent: Tachycardia, Gallop , JVD, Rubs, Systolic Murmur - GI/Abdominal Exam GI & Abdominal Exam: Hernia, Normal Bowel Sounds, Soft. absent: Distended, Firm , Guarding, Tenderness - Extremities Exam Extremities exam: Positive for: normal inspection. Negative for: calf tenderness, pedal edema - Neurological Exam Neurological exam: Alert, CN II-XII Intact, Oriented x3 Results - Vital Signs Recent Vital Signs: Last Vital Signs Temp 97.9 F 06/27/17 08:14 Pulse 75 06/27/17 08:36 Resp 18 06/27/17 08:14 BP 157/82 H 06/27/17 08:36 Pulse Ox 98 06/27/17 08:14 - Labs Result Diagrams: 06/27/17 05:15 06/27/17 05:15 Labs: Laboratory Results - last 24 hr 06/26/17 06/26/17 06/27/17 17:54 21:39 05:15 WBC 6.1 RBC 3.54 L Hgb 9.8 L Hct 31.2 L MCV 88.3 MCH 27.8 MCHC 31.5 L RDW 14.9 H Plt Count 451 H Sodium Potassium Chloride Carbon Dioxide Anion Gap BUN Creatinine Est GFR ( Amer) Est GFR (Non-Af Amer) POC Glucose (mg/dL) 164 H 156 H Random Glucose Calcium Total Bilirubin AST ALT Alkaline Phosphatase Total Protein Albumin Globulin Albumin/Globulin Ratio 06/27/17 05:15 WBC RBC Hgb Hct MCV MCH MCHC RDW Plt Count Sodium 140 Potassium 4.3 Chloride 101 Carbon Dioxide 27 Anion Gap 16 BUN 15 Creatinine 1.4 Est GFR ( Amer) 58 Est GFR (Non-Af Amer) 48 POC Glucose (mg/dL) Random Glucose 141 H Calcium 10.1 Total Bilirubin 0.3 AST 58 ALT 34 Alkaline Phosphatase 54 Total Protein 7.7 Albumin 3.7 Globulin 4.0 H Albumin/Globulin Ratio 0.9 L Assessment & Plan - Assessment and Plan (Free Text) Assessment: (1) Pleural effusion Assessment & Plan: c/w current management, no surgical intervention Incentive spirometry TCU for rehab (2) Hypertension Assessment & Plan: improving control c/w with amlodipine and hydralazine d/carolyn Cardura as per cardiology c/w monitoring BPs (3) Non-insulin dependent type 2 diabetes mellitus Assessment & Plan: c/w current management (4) Prophylactic measure Assessment & Plan: Lovenox 40mg SC QD SCDS ambulation/PT <Michele Mccain A - Last Filed: 06/29/17 06:56> Results - Vital Signs Recent Vital Signs: Last Vital Signs Temp 97.3 F L 06/28/17 19:48 Pulse 88 06/28/17 19:48 Resp 20 06/28/17 19:48 BP 100/44 L 06/28/17 19:48 Pulse Ox 98 06/28/17 19:48 - Labs Result Diagrams: 06/27/17 05:15 06/27/17 05:15 Labs: Laboratory Results - last 24 hr 06/28/17 06/28/17 06/28/17 11:16 15:42 20:59 POC Glucose (mg/dL) 167 H 168 H 139 H 06/29/17 04:37 POC Glucose (mg/dL) 134 H Attending/Attestation - Attestation I have personally seen and examined this patient.: Yes I have fully participated in the care of the patient.: Yes I have reviewed all pertinent clinical information: Yes
[2017-06-27] MEDS: Enoxaparin 40 mg Syringe SC SCH (12:06)
[2017-06-27 17:57] VITALS: RESP 20
[2017-06-28] MEDS: Enoxaparin 40 mg Syringe SC SCH (09:37)
--- NOTE | 2017-06-28 09:52 | CP.PCM.PN ---
<Noah Brown - Last Filed: 06/28/17 09:53> Subjective - Date & Time of Evaluation Date of Evaluation: 06/28/17 Time of Evaluation: 09:51 - Subjective Subjective: pt seen and examined at bedside, no acute events overnight. tolerating PT. No complaints. Objective - Vital Signs/Intake and Output Vital Signs (last 24 hours): Temp Pulse Resp BP Pulse Ox 98.1 F 67 20 150/83 94 L 06/28/17 08:01 06/28/17 09:37 06/28/17 08:01 06/28/17 09:37 06/28/17 08:01 - Medications Medications: Current Medications Amlodipine Besylate (Norvasc) 10 mg PO DAILY [facility] Last Admin: 06/28/17 09:37 Dose: 10 mg Enoxaparin Sodium (Lovenox) 40 mg SC DAILY [facility] PRN Reason: Protocol Last Admin: 06/28/17 09:37 Dose: 40 mg Hydralazine HCl (Apresoline) 25 mg PO TID [facility] Last Admin: 06/28/17 09:36 Dose: 25 mg Metformin HCl (Glucophage) 1,000 mg PO BID [facility] Last Admin: 06/28/17 09:37 Dose: 1,000 mg - Labs Labs: 06/27/17 05:15 06/27/17 05:15 - Constitutional Appears: Non-toxic, No Acute Distress - Respiratory Exam Respiratory Exam: Clear to Ausculation Bilateral, NORMAL BREATHING PATTERN. absent: Rales, Rhonchi, Wheezes - Cardiovascular Exam Cardiovascular Exam: REGULAR RHYTHM, RRR, +S1, +S2. absent: JVD, Rubs - GI/Abdominal Exam GI & Abdominal Exam: Soft, Normal Bowel Sounds. absent: Tenderness - Back Exam Back Exam: absent: CVA tenderness (L) - Neurological Exam Neurological Exam: Alert, Awake, CN II-XII Intact, Oriented x3 Assessment and Plan - Assessment and Plan (Free Text) Assessment: (1) Pleural effusion Assessment & Plan: c/w current management, no surgical intervention Incentive spirometry TCU for rehab (2) Hypertension Assessment & Plan: improving control c/w with amlodipine and hydralazine d/carolyn Cardura as per cardiology c/w monitoring BPs (3) Non-insulin dependent type 2 diabetes mellitus Assessment & Plan: c/w current management (4) Prophylactic measure Assessment & Plan: Lovenox 40mg SC QD SCDS ambulation/PT <Tobias Mcclure - Last Filed: 07/03/17 06:49> Objective - Vital Signs/Intake and Output Vital Signs (last 24 hours): Temp Pulse Resp BP Pulse Ox 98.2 F 81 20 155/68 H 100 07/02/17 19:45 07/02/17 19:45 07/02/17 19:45 07/02/17 19:45 07/02/17 19:45 - Medications Medications: Current Medications Amlodipine Besylate (Norvasc) 10 mg PO DAILY [facility] Last Admin: 07/02/17 08:05 Dose: 10 mg Enoxaparin Sodium (Lovenox) 40 mg SC DAILY [facility] PRN Reason: Protocol Last Admin: 07/02/17 08:06 Dose: 40 mg Hydralazine HCl (Apresoline) 25 mg PO TID [facility] Last Admin: 07/02/17 17:11 Dose: 25 mg Lactic Acid (Lac-Hydrin 12% Lotion (225 G)) 1 applic TOP BID [facility] Last Admin: 07/02/17 17:11 Dose: 1 applic Metformin HCl (Glucophage) 1,000 mg PO BID [facility] Last Admin: 07/02/17 17:11 Dose: 1,000 mg - Labs Labs: 06/29/17 09:00 06/29/17 09:00 Attending/Attestation - Attestation I have personally seen and examined this patient.: Yes I have fully participated in the care of the patient.: Yes I have reviewed all pertinent clinical information, including history, physical exam and plan: Yes
[2017-06-29] MEDS: Enoxaparin 40 mg Syringe SC SCH (08:52)
[2017-06-29 09:32] LABS: BASO % 0.8 % (0.0-2.0); EOS # 0.1 K/uL (0.0-0.7); EOS % 1.1 % (0.0-4.0); HEMATOCRIT 29.8 % (35.0-51.0); LYMPH # 1.6 K/uL (1.0-4.3); LYMPH % 27.2 % (20.0-40.0); MEAN CELL VOLUME 88.1 fl (80.0-94.0); MEAN CORPUSCULAR HEMOGLOBIN 28.4 pg (27.0-31.0); MEAN CORPUSCULAR HGB CONC 32.2 g/dL (33.0-37.0); MEAN PLATELET VOLUME 7.6 fl (7.2-11.7); MONO # 0.4 K/uL (0.0-0.8); MONO % 6.7 % (0.0-10.0); NEUT # 3.9 K/uL (1.8-7.0); NEUT % 64.2 % (50.0-75.0); NRBC % 0.1 % (0.0-0.0); RED CELL DISTRIBUTION WIDTH 15.1 % (11.5-14.5)
[2017-06-29 09:49] LABS: ALB/GLOB RATIO 0.9 (1.0-2.1); BILIRUBIN,TOTAL 0.4 mg/dl (0.2-1.3); POTASSIUM 4.9 MMOL/L (3.6-5.0); TOTAL PROTEIN 7.8 G/DL (6.3-8.2)
[2017-06-29 19:02] LABS: RBC URINE 3 /hpf (0-3); URINE BILIRUBIN NEGATIVE (NEGATIVE); URINE BLOOD NEGATIVE (NEGATIVE); URINE COLOR YELLOW (YELLOW); URINE GLUCOSE (UA) NEG (Normal); URINE KETONE NEGATIVE (NEGATIVE); URINE LEUKOCYTE ESTERASE NEG Leu/uL (Negative); URINE PROTEIN 100 mg/dL (NEGATIVE); URINE UROBILINOGEN 0.2-1.0 mg/dL (0.2-1.0); WBC URINE 1 /hpf (0-5)
[2017-06-30] MEDS: Enoxaparin 40 mg Syringe SC SCH (08:46)
--- NOTE | 2017-06-30 08:49 | CP.PCM.PN ---
Subjective - Date & Time of Evaluation Date of Evaluation: 06/30/17 Time of Evaluation: 08:48 - Subjective Subjective: pt seen and examined at bedside. No acute events overnight. Afebrile. Complaining of hospital food. Tolerating PT. No new complaints. Objective - Vital Signs/Intake and Output Vital Signs (last 24 hours): Temp Pulse Resp BP Pulse Ox 97.7 F 73 20 139/72 98 06/29/17 19:42 06/30/17 08:46 06/29/17 19:42 06/30/17 08:46 06/29/17 19:42 - Medications Medications: Current Medications Amlodipine Besylate (Norvasc) 10 mg PO DAILY [facility] Last Admin: 06/30/17 08:45 Dose: 10 mg Enoxaparin Sodium (Lovenox) 40 mg SC DAILY [facility] PRN Reason: Protocol Last Admin: 06/30/17 08:46 Dose: 40 mg Hydralazine HCl (Apresoline) 25 mg PO TID [facility] Last Admin: 06/30/17 08:46 Dose: 25 mg Metformin HCl (Glucophage) 1,000 mg PO BID [facility] Last Admin: 06/30/17 08:46 Dose: 1,000 mg - Labs Labs: 06/29/17 09:00 06/29/17 09:00 - Constitutional Appears: Non-toxic, No Acute Distress - Head Exam Head Exam: ATRAUMATIC - Eye Exam Eye Exam: EOMI Pupil Exam: PERRL - ENT Exam ENT Exam: Mucous Membranes Moist - Neck Exam Neck Exam: Full ROM - Respiratory Exam Respiratory Exam: Clear to Ausculation Bilateral, NORMAL BREATHING PATTERN. absent: Rales, Rhonchi, Wheezes, Respiratory Distress - Cardiovascular Exam Cardiovascular Exam: REGULAR RHYTHM, RRR, +S1, +S2. absent: JVD, Rubs - GI/Abdominal Exam GI & Abdominal Exam: Soft, Normal Bowel Sounds. absent: Tenderness - Neurological Exam Neurological Exam: Alert, Awake, CN II-XII Intact, Oriented x3 - Psychiatric Exam Psychiatric exam: Normal Affect, Normal Mood - Skin Skin Exam: Dry, Intact, Normal Color, Warm Assessment and Plan - Assessment and Plan (Free Text) Assessment: (1) Pleural effusion Assessment & Plan: c/w current management, no surgical intervention Incentive spirometry TCU for rehab (2) Hypertension Assessment & Plan: improving control c/w with amlodipine and hydralazine d/carolyn Cardura as per cardiology c/w monitoring BPs (3) Non-insulin dependent type 2 diabetes mellitus Assessment & Plan: c/w current management (4) Prophylactic measure Assessment & Plan: Lovenox 40mg SC QD SCDS ambulation/PT
--- NOTE | 2017-06-30 11:35 | CP.PCM.CON ---
History of Present Illness - History of Present Illness History of Present Illness: 87 y/o male seen at bedside in TCU for elongated dystrophic painful toenails. Pt states he was brought into the hospital for appendicitis. 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 Pt states he was recently having shortness of breath, and admits to a recent appendectomy. Pt denies any history of pedal ulcerations. Pt denies burning, tingling or numbness in the lower extremities. Pt states his diabetes has always been under control. Pt denies F/C/N/V/CP. PMHx: DM, HTN, arrhythmia with pacemaker All: NKDA PSH: denies Social: denies ETOH abuse, illicit drug use, reports of hx of tobacco abuse ( quit 30 years ago) Review of Systems - Review of Systems All systems: reviewed and no additional remarkable complaints except (per HPI) Past Patient History - Past Medical History & Family History Past Medical History?: Yes - Past Social History Smoking Status: Former Smoker - CARDIAC Hx Hypertension: Yes - PULMONARY Hx Pneumonia: Yes Other/Comment: Exudative pleural effusion, extensively on the right, loculated. Pleural-based infiltrate left upper lobe. - NEUROLOGICAL Hx Neurological Disorder: No - HEENT Hx HEENT Problems: No - RENAL Hx Chronic Kidney Disease: No - ENDOCRINE/METABOLIC Hx Diabetes Mellitus Type 2: Yes - HEMATOLOGICAL/ONCOLOGICAL Hx AIDS: No Hx Human Immunodeficiency Virus (HIV): No - INTEGUMENTARY Hx Dermatological Problems: No - MUSCULOSKELETAL/RHEUMATOLOGICAL Hx Falls: No - GASTROINTESTINAL Hx Gastrointestinal Disorders: No - GENITOURINARY/GYNECOLOGICAL Hx Genitourinary Disorders: No - PSYCHIATRIC Hx Substance Use: No - SURGICAL HISTORY Hx Appendectomy: Yes Other/Comment: PACEMAKER - ANESTHESIA Hx Anesthesia: Yes Hx Anesthesia Reactions: No Hx Malignant Hyperthermia: No Meds Allergies/Adverse Reactions: Allergies Allergy/AdvReac Type Severity Reaction Status Date / Time No Known Allergies Allergy Verified 06/26/17 19:40 - Medications Medications: Current Medications Amlodipine Besylate (Norvasc) 10 mg PO DAILY COUNTS [facility]CLUDE 234 BEDS AT THE [facility] Last Admin: 06/30/17 08:45 Dose: 10 mg Enoxaparin Sodium (Lovenox) 40 mg SC DAILY [facility] PRN Reason: Protocol Last Admin: 06/30/17 08:46 Dose: 40 mg Hydralazine HCl (Apresoline) 25 mg PO TID COUNTS INCLUDE 234 BEDS AT THE [facility] Last Admin: 06/30/17 08:46 Dose: 25 mg Metformin HCl (Glucophage) 1,000 mg PO BID COUNTS INCLUDE 234 BEDS AT THE [facility] Last Admin: 06/30/17 08:46 Dose: 1,000 mg Physical Exam - Constitutional Appears: Well, Non-toxic, No Acute Distress - Extremities Exam Additional comments: Lower extremity examination: Vasc: DP/PT pulses palpable 2/4 B/L. Temperature gradient warm to cool. No pedal edema noted. CFT < 3 sec to all digits Derm: Dystrophic elongated toenails x 10 with subungual debris noted. No open lesions, no interdigital maceratio, no clinical signs of infection Neuro: Protective sensation grossly intact MSK: Mild tenderness on palpation of toenails x 10 - Neurological Exam Neurological exam: Alert, Oriented x3 - Psychiatric Exam Psychiatric exam: Normal Affect, Normal Mood Results - Vital Signs Recent Vital Signs: Last Vital Signs Temp 97.2 F L 06/30/17 09:18 Pulse 73 06/30/17 09:18 Resp 20 06/30/17 09:18 BP 139/72 06/30/17 09:18 Pulse Ox 97 06/30/17 09:18 - Labs Result Diagrams: 06/29/17 09:00 06/29/17 09:00 Labs: Laboratory Results - last 24 hr 06/29/17 06/29/17 06/29/17 16:02 18:35 20:38 POC Glucose (mg/dL) 144 H 152 H Urine Color Yellow Urine Clarity Slighty-cloudy Urine pH 6.0 Ur Specific [place] 1.014 Urine Protein 100 Urine Glucose (UA) Neg Urine Ketones Negative Urine Blood Negative Urine Nitrate Negative Urine Bilirubin Negative Urine Urobilinogen 0.2-1.0 Ur Leukocyte Esterase Neg Urine RBC (Auto) 3 Urine Microscopic WBC 1 Ur Squamous Epith Cells 1 06/30/17 06/30/17 06:48 11:27 POC Glucose (mg/dL) 135 H 181 H Urine Color Urine Clarity Urine pH Ur Specific [place] Urine Protein Urine Glucose (UA) Urine Ketones Urine Blood Urine Nitrate Urine Bilirubin Urine Urobilinogen Ur Leukocyte Esterase Urine RBC (Auto) Urine Microscopic WBC Ur Squamous Epith Cells Assessment & Plan - Assessment and Plan (Free Text) Assessment: 87 y/o diabetic male with PMHx of DM, HTN and arrhythmia with pacemaker with painful elongated dystrophic toenails Plan: Pt seen and evaluated at bedside Discussed with attending Dr. Dinero Aseptic debridement of toenails x 10 with sterile nippers Cleansed nails with alcohol pads Pt tolerated procedure without incident Podiatry to sign off at this time Thank you for this consult
[2017-07-01] MEDS: Enoxaparin 40 mg Syringe SC SCH (08:40)
--- NOTE | 2017-07-01 10:32 | CP.PCM.PN ---
Subjective - Date & Time of Evaluation Date of Evaluation: 07/01/17 Time of Evaluation: 09:35 - Subjective Subjective: Pt seen and examined at bedside, family at bedside, does not have any complaints today. reports podiatry did see him yesterday and cut his nail. Denies any chest pain, sob, nausea or vomiting. Objective - Vital Signs/Intake and Output Vital Signs (last 24 hours): Temp Pulse Resp BP Pulse Ox 97.9 F 70 20 146/68 98 07/01/17 08:33 07/01/17 08:40 07/01/17 08:33 07/01/17 08:40 07/01/17 08:33 - Medications Medications: Current Medications Amlodipine Besylate (Norvasc) 10 mg PO DAILY [facility] Last Admin: 07/01/17 08:40 Dose: 10 mg Enoxaparin Sodium (Lovenox) 40 mg SC DAILY [facility] PRN Reason: Protocol Last Admin: 07/01/17 08:40 Dose: 40 mg Hydralazine HCl (Apresoline) 25 mg PO TID [facility] Last Admin: 07/01/17 08:39 Dose: 25 mg Lactic Acid (Lac-Hydrin 12% Lotion (225 G)) 1 applic TOP BID [facility] Metformin HCl (Glucophage) 1,000 mg PO BID [facility] Last Admin: 07/01/17 08:39 Dose: 1,000 mg - Labs Labs: 06/29/17 09:00 06/29/17 09:00 - Constitutional Appears: Non-toxic, No Acute Distress - ENT Exam ENT Exam: Mucous Membranes Moist - Respiratory Exam Respiratory Exam: Rales, NORMAL BREATHING PATTERN - Cardiovascular Exam Cardiovascular Exam: REGULAR RHYTHM, +S1, +S2 - GI/Abdominal Exam GI & Abdominal Exam: Soft, Normal Bowel Sounds. absent: Tenderness - Extremities Exam Extremities Exam: absent: Calf Tenderness, Pedal Edema - Neurological Exam Neurological Exam: Alert, Awake, Oriented x3 Assessment and Plan - Assessment and Plan (Free Text) Assessment: 87 y/o male admitted to TCU for rehab following appendectomy and pleural effusion noted on CT which is improving Plan: Plueral effusion- pt remains asymptomatic at CT shows improvement continue to monitor HTN- continue current medication Continue rehab per PT and OT Diet- heart healthy DVT prophylaxis- Lovenox
--- NOTE | 2017-07-02 07:55 | CP.PCM.PN ---
<ReylenaNoah - Last Filed: 07/02/17 07:55> Subjective - Date & Time of Evaluation Date of Evaluation: 07/02/17 Time of Evaluation: 07:00 - Subjective Subjective: pt seen and examined at bedside this morning with attending. No complaints. No acute events overnight. Denies diarrhea. Reports feeling well and stronger overall. Objective - Vital Signs/Intake and Output Vital Signs (last 24 hours): Temp Pulse Resp BP Pulse Ox 98.1 F 78 20 147/46 L 97 07/01/17 21:27 07/01/17 21:27 07/01/17 21:27 07/01/17 21:27 07/01/17 21:27 - Medications Medications: Current Medications Amlodipine Besylate (Norvasc) 10 mg PO DAILY [facility] Last Admin: 07/01/17 08:40 Dose: 10 mg Enoxaparin Sodium (Lovenox) 40 mg SC DAILY [facility] PRN Reason: Protocol Last Admin: 07/01/17 08:40 Dose: 40 mg Hydralazine HCl (Apresoline) 25 mg PO TID [facility] Last Admin: 07/01/17 16:55 Dose: 25 mg Lactic Acid (Lac-Hydrin 12% Lotion (225 G)) 1 applic TOP BID [facility] Last Admin: 07/01/17 16:55 Dose: 1 applic Metformin HCl (Glucophage) 1,000 mg PO BID [facility] Last Admin: 07/01/17 16:55 Dose: 1,000 mg - Labs Labs: 06/29/17 09:00 06/29/17 09:00 - Constitutional Appears: Non-toxic, No Acute Distress - Head Exam Head Exam: ATRAUMATIC - Eye Exam Eye Exam: EOMI Pupil Exam: PERRL - ENT Exam ENT Exam: Mucous Membranes Moist - Neck Exam Neck Exam: Full ROM - Respiratory Exam Respiratory Exam: Clear to Ausculation Bilateral, NORMAL BREATHING PATTERN. absent: Rales, Rhonchi, Wheezes - Cardiovascular Exam Cardiovascular Exam: REGULAR RHYTHM, RRR, +S1, +S2. absent: JVD, Rubs - GI/Abdominal Exam GI & Abdominal Exam: Soft, Normal Bowel Sounds. absent: Tenderness - Neurological Exam Neurological Exam: Alert, Awake, CN II-XII Intact, Oriented x3 Assessment and Plan - Assessment and Plan (Free Text) Assessment: 87 y/o male admitted to TCU for rehab following appendectomy and pleural effusion noted on CT which has improved. Plan: Pleural effusion- pt remains asymptomatic at CT shows improvement continue to monitor HTN- continue current medication Continue rehab per PT and OT Diet- heart healthy DVT prophylaxis- Lovenox <Michele Mccain - Last Filed: 07/04/17 06:51> Objective - Vital Signs/Intake and Output Vital Signs (last 24 hours): Temp Pulse Resp BP Pulse Ox 97.9 F 72 20 152/72 H 96 07/03/17 08:45 07/03/17 08:45 07/03/17 08:45 07/03/17 08:45 07/03/17 08:45 - Labs Labs: 06/29/17 09:00 06/29/17 09:00 Attending/Attestation - Attestation I have personally seen and examined this patient.: Yes I have fully participated in the care of the patient.: Yes I have reviewed all pertinent clinical information, including history, physical exam and plan: Yes
[2017-07-02] MEDS: Enoxaparin 40 mg Syringe SC SCH (08:06)
--- NOTE | 2017-07-03 07:15 | CP.PCM.PN ---
Subjective - Date & Time of Evaluation Date of Evaluation: 07/03/17 Time of Evaluation: 06:45 - Subjective Subjective: no changes from yesterday to go home scripts already e scribed to pharmacy Objective - Vital Signs/Intake and Output Vital Signs (last 24 hours): Temp Pulse Resp BP Pulse Ox 98.2 F 81 20 155/68 H 100 07/02/17 19:45 07/02/17 19:45 07/02/17 19:45 07/02/17 19:45 07/02/17 19:45 - Medications Medications: Current Medications Amlodipine Besylate (Norvasc) 10 mg PO DAILY [facility] Last Admin: 07/02/17 08:05 Dose: 10 mg Enoxaparin Sodium (Lovenox) 40 mg SC DAILY [facility] PRN Reason: Protocol Last Admin: 07/02/17 08:06 Dose: 40 mg Hydralazine HCl (Apresoline) 25 mg PO TID [facility] Last Admin: 07/02/17 17:11 Dose: 25 mg Lactic Acid (Lac-Hydrin 12% Lotion (225 G)) 1 applic TOP BID [facility] Last Admin: 07/02/17 17:11 Dose: 1 applic Metformin HCl (Glucophage) 1,000 mg PO BID [facility] Last Admin: 07/02/17 17:11 Dose: 1,000 mg - Labs Labs: 06/29/17 09:00 06/29/17 09:00 - Constitutional Appears: No Acute Distress - Eye Exam Eye Exam: Normal appearance - Neck Exam Neck Exam: Normal Inspection - Respiratory Exam Respiratory Exam: Decreased Breath Sounds - Cardiovascular Exam Cardiovascular Exam: REGULAR RHYTHM - GI/Abdominal Exam GI & Abdominal Exam: Normal Bowel Sounds - Extremities Exam Extremities Exam: Normal Inspection - Neurological Exam Neurological Exam: Alert, Oriented x3 - Psychiatric Exam Psychiatric exam: Normal Affect, Normal Mood - Skin Skin Exam: Dry, Intact Assessment and Plan (1) Pleural effusion, right Status: Acute (2) Hypertension Status: Chronic (3) 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
--- NOTE | 2017-07-03 07:26 | CP.PCM.DIS ---
Provider - Provider Date of Admission: 06/26/17 15:48 Attending physician: Michele Mccain MD Time Spent in preparation of Discharge (in minutes): 35 Diagnosis - Discharge Diagnosis (1) Pulmonary infiltrate present on computed tomography Status: Acute Priority: High Hospital Course - Lab Results Lab Results: Most Recent Lab Values WBC 6.0 K/uL (4.8-10.8) 06/29/17 09:00 RBC 3.38 Mil/uL (4.40-5.90) L 06/29/17 09:00 Hgb 9.6 g/dL (12.0-18.0) L 06/29/17 09:00 Hct 29.8 % (35.0-51.0) L 06/29/17 09:00 MCV 88.1 fl (80.0-94.0) 06/29/17 09:00 MCH 28.4 pg (27.0-31.0) 06/29/17 09:00 MCHC 32.2 g/dL (33.0-37.0) L 06/29/17 09:00 RDW 15.1 % (11.5-14.5) H 06/29/17 09:00 Plt Count 391 K/uL (130-400) 06/29/17 09:00 MPV 7.6 fl (7.2-11.7) 06/29/17 09:00 Neut % (Auto) 64.2 % (50.0-75.0) 06/29/17 09:00 Lymph % (Auto) 27.2 % (20.0-40.0) 06/29/17 09:00 [place] % (Auto) 6.7 % (0.0-10.0) 06/29/17 09:00 Eos % (Auto) 1.1 % (0.0-4.0) 06/29/17 09:00 Baso % (Auto) 0.8 % (0.0-2.0) 06/29/17 09:00 Neut # 3.9 K/uL (1.8-7.0) 06/29/17 09:00 Lymph # 1.6 K/uL (1.0-4.3) 06/29/17 09:00 [place] # 0.4 K/uL (0.0-0.8) 06/29/17 09:00 Eos # 0.1 K/uL (0.0-0.7) 06/29/17 09:00 Baso # 0.0 K/uL (0.0-0.2) 06/29/17 09:00 Sodium 138 mmol/l (132-148) 06/29/17 09:00 Potassium 4.9 MMOL/L (3.6-5.0) 06/29/17 09:00 Chloride 101 mmol/L (98-107) 06/29/17 09:00 Carbon Dioxide 24 mmol/L (22-30) 06/29/17 09:00 Anion Gap 18 (10-20) 06/29/17 09:00 BUN 20 mg/dl (9-20) 06/29/17 09:00 Creatinine 1.6 mg/dL (0.8-1.5) H 06/29/17 09:00 Est GFR ( Amer) 49 06/29/17 09:00 Est GFR (Non-Af Amer) 41 06/29/17 09:00 POC Glucose (mg/dL) 166 mg/dL (65-110) H 07/03/17 05:55 Random Glucose 155 mg/dL (75-110) H 06/29/17 09:00 Calcium 10.0 mg/dL (8.4-10.2) 06/29/17 09:00 Total Bilirubin 0.4 mg/dl (0.2-1.3) 06/29/17 09:00 AST 58 U/L (17-59) 06/29/17 09:00 ALT 47 U/L (21-72) 06/29/17 09:00 Alkaline Phosphatase 55 U/L (38-126) 06/29/17 09:00 Total Protein 7.8 G/DL (6.3-8.2) 06/29/17 09:00 Albumin 3.7 g/dL (3.5-5.0) 06/29/17 09:00 Globulin 4.1 gm/dL (2.2-3.9) H 06/29/17 09:00 Albumin/Globulin Ratio 0.9 (1.0-2.1) L 06/29/17 09:00 Urine Color Yellow (YELLOW) 06/29/17 18:35 Urine Clarity Slighty-cloudy (Clear) 06/29/17 18:35 Urine pH 6.0 (5.0-8.0) 06/29/17 18:35 Ur Specific [place] 1.014 (1.003-1.030) 06/29/17 18:35 Urine Protein 100 mg/dL (NEGATIVE) 06/29/17 18:35 Urine Glucose (UA) Neg mg/dL (Normal) 06/29/17 18:35 Urine Ketones Negative mg/dL (NEGATIVE) 06/29/17 18:35 Urine Blood Negative (NEGATIVE) 06/29/17 18:35 Urine Nitrate Negative (NEGATIVE) 06/29/17 18:35 Urine Bilirubin Negative (NEGATIVE) 06/29/17 18:35 Urine Urobilinogen 0.2-1.0 mg/dL (0.2-1.0) 06/29/17 18:35 Ur Leukocyte Esterase Neg [place]/uL (Negative) 06/29/17 18:35 Urine RBC (Auto) 3 /hpf (0-3) 06/29/17 18:35 Urine Microscopic WBC 1 /hpf (0-5) 06/29/17 18:35 Ur Squamous Epith Cells 1 /hpf (0-5) 06/29/17 18:35 - Hospital Course Hospital Course: pt was admitted to TCU for rehab after a stay in med/surg for evaluation of a pleural effusion that was found during a stay for acute appendicitis. Pt was evalauted, with IR Bx, and follow up CT showed improvment. Pt tolerated PT well w/o any issues. After an uneventful hospital stay, he was discharged in stable condition. Meds on DC: Hydralazine 25mg TID Norvasc 10mg QD Discharge Exam - Head Exam Head Exam: ATRAUMATIC - Eye Exam Eye Exam: EOMI Pupil Exam: PERRL - ENT Exam ENT Exam: Mucous Membranes Moist - Respiratory Exam Respiratory Exam: Clear to PA & Lateral, NORMAL BREATHING PATTERN, UNREMARKABLE - Cardiovascular Exam Cardiovascular Exam: REGULAR RHYTHM - GI/Abdominal Exam GI & Abdominal Exam: Normal Bowel Sounds, Unremarkable - Neurological Exam Neurological exam: Alert, CN II-XII Intact, Oriented x3 Discharge Plan - Discharge Medications Prescriptions: amLODIPine [Norvasc] 10 mg PO DAILY #30 tab hydrALAZINE [Apresoline] 25 mg PO TID #30 tab MetFORMIN [glucoPHAGE] 1,000 mg PO BID #30 tab - Follow Up Plan Condition: GOOD Disposition: HOME/ ROUTINE Additional Instructions: follow up with Dr. Mcclure within a week of discharge.
[2017-07-03] MEDS: Enoxaparin 40 mg Syringe SC SCH (08:05)
[2017-07-03 08:07] VITALS: BP 152/72; PULSE 72
[2017-07-03 08:46] VITALS: TEMP 97.9; O2SAT 96
== END 2017-07-03 10:30 | disposition home or self-care (01) | DRG 188 ==
LOC: H.TCU 06-26 15:48
PROVIDERS: ADMIT Family Medicine; ATTEND Family Medicine
PROC: 0HBRXZZ Excision of Toe Nail, External Approach (ICD-10-PCS; principal; 2017-06-30)
PROC: F08Z4FZ Home Management Treatment using Assistive, Adaptive, Supportive or Protective Equipment (ICD-10-PCS; 2017-06-30)
PROC: F07M6FZ Therapeutic Exercise Treatment of Musculoskeletal System - Whole Body using Assistive, Adaptive, Supportive or Protective Equipment (ICD-10-PCS; 2017-06-30)
DX: J90 Pleural effusion, not elsewhere classified (principal); E11.9 Type 2 diabetes mellitus without complications; I10 Essential (primary) hypertension; E66.3 Overweight; Z68.27 Body mass index [BMI] 27.0-27.9, adult; M43.6 Torticollis; Z79.84 Long term (current) use of oral hypoglycemic drugs; Z87.01 Personal history of pneumonia (recurrent); Z87.891 Personal history of nicotine dependence; Z90.49 Acquired absence of other specified parts of digestive tract; Z95.0 Presence of cardiac pacemaker; L60.3 Nail dystrophy

== ENCOUNTER 2017-09-17 08:09 | Day surgery (SDC) | payer MEDICARE ==
[2017-09-11 10:04] VITALS: BMI 29.2
[2017-09-17] MEDS ORDERED: ceFAZolin IV 1 gm in Dextrose 1 GM/50 ML BAG IVPB ONE (12:10)
[2017-09-17] MEDS ORDERED: Lidocaine 1% Inj (20ml) ONE ×2 (12:11→12:30)
[2017-09-17] MEDS ORDERED: Iohexol 300 10 ML ONE (12:21)
[2017-09-17] MEDS ORDERED: Lactated Ringer's 1,000 ML IV ONE (12:35)
[2017-09-17] MEDS ORDERED: Midazolam 2 MG/2 ML VIAL ONE ×2 (12:37→12:52)
[2017-09-17] MEDS ORDERED: Propofol 10 mg/ml Inj (20 ML) ONE (13:11)
[2017-09-17] MEDS ORDERED: Lactated Ringer's 1,000 ML IV SCH (14:00)
[2017-09-17 16:16] VITALS: O2SAT 96
[2017-09-17 16:59] VITALS: BP 156/76; PULSE 88; RESP 20; TEMP 98
--- NOTE | 2017-09-18 01:18 | OP ---
PROCEDURE DATE: 09/17/2017 PROCEDURE: Permanent pacemaker generator change. PREPROCEDURE DIAGNOSES: 1. Heart block. 2. Permanent pacemaker reaching elective replacement interval. 3. Hypertension. REFERRING PHYSICIAN: Keith Valladares MD BRIEF HISTORY: Mr. Bernard Loya is a very pleasant 87-year-old male with past medical history significant for hypertension, obesity, arthritis, heart block status post permanent pacemaker who presents today to [facility] for permanent pacemaker generator change after his device was found to be reaching ABDI. Informed consent was received for both the procedure as well as anesthesia which was performed by Dr. Hanks of the Anesthesia Department here at [facility]. DESCRIPTION OF PROCEDURE: Mr. Loya was brought to the room in a post-absorptive state. The right pectoral area was draped and prepped in a sterile fashion. Lidocaine 2% solution was injected into the surgical site. Using blunt dissection, the fascial planes were dissected. Electrocautery was not used for fear of the device possibly suspending pacemaking which can be an effect of electrocautery. Therefore, the fascial planes were dissected manually. The device and lead system were then removed from the pocket. The removed or explanted pulse generator is a [employer] model 5386, serial number [id number]. This was removed from the pocket. The lead system was removed from the device. The right atrial lead is a [employer], model 1688, serial number [id number]. The threshold is 0.9 volt at 0.5 milliseconds. The impedance is 415 ohms which is within normal limits. The right ventricular lead is a 1646, serial number [id number]. The threshold is 1.4 volt at 0.5 milliseconds. Patient is paced with no significant or meaningful underlying ventricular rate. The impedance on this lead is 516. Both leads were then connected to the new pulse generator which is a [employer] safe device, model number CM2099, serial number is [id number]. The device and lead system were then coiled and placed in the existing pocket. A limited capsulectomy was performed. The pocket was irrigated using Bacitracin solution. A retention suture was applied to prevent device migration, two layers of 2-0 Vicryl were used to close the superficial fascial and skin layers. Mastisol and Steri-Strips were then applied to the incision. A small pressure dressing was then applied. Patient tolerated the procedure well and was taken out of the room in satisfactory condition. PLAN: Patient should undergo normal postoperative protocol. If he remains stable, patient may be discharged home to follow up in the office routinely in a period of 2 to 4 weeks. He is to also follow up with Dr. Valladares in his [place] office. I left the message for Dr. Valladares. Thank you for allowing me to participate in the care of your patient. Please do not hesitate to call with further questions in regards to his care. Yours sincerely, Jose Li MD
--- NOTE | 2017-09-18 08:23 | CARD ---
APPROVED REPORT EKG Measurement Heart [id number] <Conclusion> Atrial-sensed ventricular-paced rhythm with prolonged AV conduction Abnormal ECG
--- NOTE | 2017-09-18 12:09 | RAD ---
HISTORY: post ppm gen change COMPARISON: CT chest from 06/25/2017 FINDINGS: LUNGS: The lungs are clear. There is improved aeration in both lower lobes. PLEURA: No significant pleural effusion identified, no pneumothorax apparent. CARDIOVASCULAR: Normal. There is stable position of a right-sided pacemaker the OSSEOUS STRUCTURES: No significant abnormalities. VISUALIZED UPPER ABDOMEN: Normal. OTHER FINDINGS: None. IMPRESSION: No active pulmonary disease.
--- NOTE | 2017-09-20 19:25 | RAD ---
PROCEDURE: Intraoperative Fluoroscopy. HISTORY: PACEMAKER FINDINGS: Fluoroscopic assistance was provided for cardiac pacemaker deployment. Please refer to the operative report from cumulative radiation dose of 0.76 mGy.
== END 2017-09-17 17:10 | disposition home or self-care (01) ==
LOC: H.OPSURG 08:09
PROVIDERS: ATTEND Internal Medicine Cardiovascular Disease
DX: Z95.0 Presence of cardiac pacemaker (principal); I10 Essential (primary) hypertension; E11.9 Type 2 diabetes mellitus without complications; M19.90 Unspecified osteoarthritis, unspecified site; I49.5 Sick sinus syndrome; R00.1 Bradycardia, unspecified
CPT/HCPCS: 33208; 33233; 33234; 71045; 82948; 88300; 88304; 93005; C1785; J0690; J2250; J2704; J7120